=== PATIENT | male | born 1945 | race Caucasian/White ===

== ENCOUNTER 2017-04-13 00:31 | Inpatient (IN) ==
[2017-04-13 01:36] LABS: Basophils % 0.7 %; Eosinophils # 0.1 K/mcL (0.0-0.6); Hematocrit 45.8 % (37.5-50.1); Hemoglobin 15.5 g/dL (12.9-16.9); Immature Granulocytes % 0.2 % (0-4); Immature Platelets 3.7 % (1.1-6.1); Lymphocytes # 1.3 K/mcL (0.6-4.6); Lymphocytes % 23.1 %; Mean Corpuscular HGB Conc 33.8 g/dL (31.6-35.5); Mean Corpuscular Hemoglobin 29.9 pg (28.0-33.3); Mean Corpuscular Volume 88.4 fL (83.0-100.0); Mean Platelet Volume 10.1 fL (9.4-12.4); Monocytes # 0.8 K/mcL (0.0-1.3); Monocytes % 13.9 %; Neutrophils # 3.4 K/mcL (1.6-8.9); Platelet Count 179 K/mcL (140-400); Red Blood Count 5.18 M/mcL (4.19-5.50); Segmented Neutrophils % 60.1 %
[2017-04-13 01:40] LABS: INR 1.1; Prothrombin Time 11.9 Seconds (9.4-12.1)
[2017-04-13 01:43] LABS: Activated Partial Thrombo Time 31.5 Seconds (26.0-36.0)
[2017-04-13 01:47] LABS: BUN/Creatinine Ratio 13 (6-26); Blood Urea Nitrogen 17 mg/dL (8-26); Calcium 9.1 mg/dL (8.6-10.8); Carbon Dioxide 19 mEq/L (19-29); Chloride 108 mEq/L (98-109); Glucose 114 mg/dL (70-99); Osmolality,Calculated 288 (280-300); Potassium 3.7 mEq/L (3.5-4.5); Sodium 138 mEq/L (136-145); eGFR For African Americans > 60 (> 60); eGFR For Non-African Americans 54 (> 60)
[2017-04-13] MEDS ORDERED: Aspirin 325 MG TABLET PO ONE ×2 (02:00→02:33)
[2017-04-13] MEDS ORDERED: *HR* Heparin 5,000 UNIT/ML VIAL IVP PRN ×2 (02:08)
[2017-04-13] MEDS ORDERED: *HR* Heparin 5,000 UNIT/ML VIAL IVP ONE (02:08)
[2017-04-13] MEDS ORDERED: *HR* Metoprolol 5 MG/5 ML VIAL IVP ONE (02:32)
--- NOTE | 2017-04-13 02:32 | Emergency Department Note ---
Disposition Clinical Impression: NSTEMI (non-ST elevated myocardial infarction) Disposition: Admitted As Inpatient Condition: Good Referrals: Nick Patel DO [Primary Care Provider] - Forms: ED Satisfaction Letter, Work/School Release General Adult HPI - General Chief complaint: ED General Medical Stated complaint: HTN Time Seen by Provider: 04/13/17 01:25 Source: patient, family Limitations: no limitations Nursing Notes Reviewed: Yes Vital Signs Reviewed: Yes - History of Present Illness HPI Narrative: Patient presents for evaluation of high blood pressure and chest pain. Patient states that his blood pressure has been elevated the last several days. Patient was initially seen in urgent care and told to take it to his blood pressure medications. Patient has had continued symptoms despite this management. Patient's blood pressure remains greater than 170 systolic. Patient describes a left chest and arm pain is worse after he exercises. Atypical in nature and the fact that it is approximately an hour after exercise. Not tender to the touch or worse with movement. No chest pain during actual activity. Patient has not had associated diaphoresis or nausea or vomiting or radiation to right arm. Patient is concerned that he may have pulled a muscle using a new piece of exercise equipment. Pain Scale: 0 - Related Data Home Medications Medication Instructions Recorded Confirmed Aspirin [Lo-Dose Aspirin EC] 81 mg PO DAILY 04/13/17 04/13/17 Lisinopril [Zestril] 10 mg PO DAILY 04/13/17 04/13/17 Montelukast [Singulair] 10 mg PO DAILY 04/13/17 04/13/17 Potassium Chloride [K-Tab ER] 20 meq PO HS 04/13/17 04/13/17 Saw [place] Fruit [Saw [place]] 450 mg PO DAILY 04/13/17 04/13/17 Tamsulosin [Flomax] 0.4 mg PO DAILY 04/13/17 04/13/17 Verapamil HCl [Verapamil ER] 120 mg PO DAILY 04/13/17 04/13/17 Allergies Allergy/AdvReac Type Severity Reaction Status Date / Time No Known Allergies Allergy Verified 04/13/17 00:37 Review of Systems: CONSTITUTIONAL: No weight loss, fever, chills, weakness or fatigue. HEENT: Eyes: No visual changes. Ears, Nose, Throat: No hearing loss, difficulty talking or unable to swallow. SKIN: No rash or itching. CARDIOVASCULAR: chest pain RESPIRATORY: No shortness of breath, cough or sputum. GASTROINTESTINAL: No anorexia, nausea, vomiting or diarrhea. No abdominal pain or blood. GENITOURINARY: No burning on urination or hematuria. NEUROLOGICAL: No headache, dizziness, syncope, paralysis, ataxia, numbness or tingling in the extremities. No change in bowel or bladder control. MUSCULOSKELETAL: No muscle pain, back pain, joint pain or stiffness. Past Medical History - Past Medical History Medical history: Reports: hypertension Psychiatric history: Reports: no psych history - Social History Smoking Status: Never smoker Smokeless Tobacco Status: No Alcohol use: Reports: none Drug use: Reports: none Physical Exam General appearance: NAD, conversant Eyes: anicteric sclerae, moist conjunctivae; PERRL HENT: Atraumatic; oropharynx clear with moist mucous membranes and no mucosal ulcerations Neck: Normal inspection; Trachea midline; FROM, supple Lungs: CTA, with normal respiratory effort and no intercostal retractions CV: RRR, no MRGs Abdomen: Soft, non-tender; no rebound or gaurding Extremities: No peripheral edema or extremity lymphadenopathy Skin: Normal temperature; no rash, ulcers or lesions Psych: Appropriate mood and affect Neuro: alert and oriented to person, place and time - General Limitations: no limitations General appearance: alert, in no apparent distress Course - Reevaluation(s) Reevaluation #1: Patient with elevated troponin. Heart rate 99 to low 100s with frequent PVCs. Blood pressure remains elevated. Lopressor given. Heparin drip started. Aspirin given. - Consultations Consultation #1: Discussed with Dr. Viveros. Patient accepted for admission. Request cardiology consultation prior to patient coming to the floor. Discussed with Drs. Linda. Patient is fine to go to a telemetry bed with a heparin drip. If the patient develops chest pain and repeat EKG continue performed and they can further evaluate the need for possible emergent catheterization. Patient does not have pain or ST elevations and does not require emergent catheterization at this time. If the patient does develop chest pain, which he has not had in the emergency department, we can start a nitroglycerin drip. Vital Signs Temperature 98.2 F 04/13/17 00:37 Pulse Rate 95 04/13/17 00:37 Respiratory Rate 18 04/13/17 00:37 Blood Pressure 182/113 04/13/17 00:37 O2 Sat by Pulse Oximetry 95 04/13/17 00:37 Temperature 98.2 F 04/13/17 00:37 Pulse Rate 68 04/13/17 04:10 Respiratory Rate 17 04/13/17 04:10 Blood Pressure 159/97 04/13/17 04:10 O2 Sat by Pulse Oximetry 96 04/13/17 04:10 Oxygen Delivery Oxygen Delivery Room Air Medical Decision Making - Medical Records Medical records reviewed: Yes I reviewed the patient's medical records. - Lab Data Lab results reviewed: Yes I reviewed the patient's lab results. Result diagrams: 04/13/17 01:29 04/13/17 01:29 Lab Results 04/13/17 04/13/17 04/13/17 Range/Units 01: 01:29 01:29 WBC 5.6 (4.3-11.1) K/mcL RBC 5.18 (4.19-5.50) M/mcL Hgb 15.5 (12.9-16.9) g/dL Hct 45.8 (37.5-50.1) % MCV 88.4 (83.0-100.0) fL MCH 29.9 (28.0-33.3) pg MCHC 33.8 (31.6-35.5) g/dL RDW 13.0 (11.5-14.5) % Plt Count 179 (140-400) K/mcL MPV 10.1 (9.4-12.4) fL Immature Gran % 0.2 (0-4) % Seg Neutrophils % 60.1 % Lymphocytes % 23.1 % Monocytes % 13.9 % Eosinophils % 2.0 % Basophils % 0.7 % Neutrophils # 3.4 (1.6-8.9) K/mcL Lymphocytes # 1.3 (0.6-4.6) K/mcL Monocytes # 0.8 (0.0-1.3) K/mcL Eosinophils # 0.1 (0.0-0.6) K/mcL Basophils # 0.0 (0.0-0.2) K/mcL Immature Plt Fraction 3.7 (1.1-6.1) % PT 11.9 (9.4-12.1) Seconds INR 1.1 APTT 31.5 (26.0-36.0) Seconds Sodium 138 (136-145) mEq/L Potassium 3.7 (3.5-4.5) mEq/L Chloride 108 (98-109) mEq/L Carbon Dioxide 19 (19-29) mEq/L BUN 17 (8-26) mg/dL Creatinine 1.31 H (0.72-1.25) mg/dL Est GFR ( Amer) > 60 (> 60) Est GFR (Non-Af Amer) 54 L (> 60) BUN/Creatinine Ratio 13 (6-26) Glucose 114 H (70-99) mg/dL Calculated Osmolality 288 (280-300) Calcium 9.1 (8.6-10.8) mg/dL Troponin I (0-0.03) ng/mL 04/13/17 Range/Units 01:29 WBC (4.3-11.1) K/mcL RBC (4.19-5.50) M/mcL Hgb (12.9-16.9) g/dL Hct (37.5-50.1) % MCV (83.0-100.0) fL MCH (28.0-33.3) pg MCHC (31.6-35.5) g/dL RDW (11.5-14.5) % Plt Count (140-400) K/mcL MPV (9.4-12.4) fL Immature Gran % (0-4) % Seg Neutrophils % % Lymphocytes % % Monocytes % % Eosinophils % % Basophils % % Neutrophils # (1.6-8.9) K/mcL Lymphocytes # (0.6-4.6) K/mcL Monocytes # (0.0-1.3) K/mcL Eosinophils # (0.0-0.6) K/mcL Basophils # (0.0-0.2) K/mcL Immature Plt Fraction (1.1-6.1) % PT (9.4-12.1) Seconds INR APTT (26.0-36.0) Seconds Sodium (136-145) mEq/L Potassium (3.5-4.5) mEq/L Chloride (98-109) mEq/L Carbon Dioxide (19-29) mEq/L BUN (8-26) mg/dL Creatinine (0.72-1.25) mg/dL Est GFR ( Amer) (> 60) Est GFR (Non-Af Amer) (> 60) BUN/Creatinine Ratio (6-26) Glucose (70-99) mg/dL Calculated Osmolality (280-300) Calcium (8.6-10.8) mg/dL Troponin I 0.74 H* (0-0.03) ng/mL - Radiology Data Radiology results reviewed: Yes I reviewed the patient's radiology results. - EKG Data EKG #1 EKG attestation: Yes I reviewed and interpreted this EKG. EKG results narrative: Patient's EKG shows sinus rhythm with ventricular rate of 92 bpm. IN interval 178. QRS 106. QTC 382. Patient has no significant ST elevations or depressions. Patient does have significant T waves in V2 and V3. No specific elevation of aVR. [place] is considered however patient is not actively having chest pain. No previous EKG for comparison.
--- NOTE | 2017-04-13 02:33 | Emergency Department Note ---
START Narrative - START START: I examined this patient and my medical decision-making was reviewed with the Resident Physician. I agree with the documented findings, disposition and treatment plan as described except to the extent set forth below. 72 year old male presnt to the ED and states that he has had chest pain that startsabout 30-40 minites after exertion tht radiates into this left arm and is a dull pressure alhotuhg it has improved. He was seen at earlier today for high blood pressures and they were told he needs to come to the ED if his blood pressure elevated again. Upon arrival it was 180/130s and he has a troponin of 0.74. We will start heparin and metoprolol therapy. Lindsay will be admitted to medicine
[2017-04-13] MEDS: Heparin 25,000 UNIT/500 ML D5W 25,000 UNIT/500 ML MLS IVC SCH (02:44)
--- NOTE | 2017-04-13 05:41 | Internal Med History&Physical ---
Date of Encounter: 04/13/17 Time of Encounter: 05:39 Assessment and Plan (1) Hypertension Current visit: Yes Status: Acute Resume blood pressure medications. Blood pressure controlled now. If it starts rising or if patients has chest pain will start nitroglycerin drip. Qualifiers: Qualified Code(s): I10 - Essential (primary) hypertension (2) History of bleeding ulcers Current visit: Yes Status: Acute Last bleeding was in the 1980s. Denies any current bleed (3) NSTEMI (non-ST elevated myocardial infarction) Current visit: Yes Status: Acute Patient presented with 20 minute episode of left arm pain after he went home from exercising on a treadmill bike. checked pressure during this episode and it was 192/100. given the fact that he had noninclusive coronary artery disease year ago on an angiogram possibilities for this presentation include coronary spasm, hypertensive urgency vs a plaque rupture and thrombus formation : however he doesnt have ST elevation on EKG. would get workup done at [facility] a year ago. Patient is currently on aspirin, heparin drip. Appreciate cardiology recommendation Internal Medicine - H&P: HPI Chief complaint: chest pain History of present illness: Mr. Eastman is a 72 year old male with a history of hypertension, history of bleeding duodenal ulcers presents emergency room today with the main content of chest pain. Patient does bike treadmill 3 times a week. Today after he finished his bike treadmill and went home approximately 2 hours later he started experiencing left arm pain. This lasted for approximately 15 to 20 minutes. Once checked his blood pressure during this episode was 192/100. Patient rested down and pain resolved spontaneously. He presents emergency room for further management. He had a similar episode of pain 2 weeks earlier while he was doing your yard work. Patient was often during my interview. A year ago patient had extensive cardiac workup after he was told that he coded during a colonoscopy at [facility]. He had a coronary angiogram at that time and the mentioned that they were told there was no significant coronary disease. Past Med Surg Social Fam HX - Past Medical History Medical history: hypertension Psychiatric history: no psych history - Social History Smoking Status: Never smoker Smokeless Tobacco Status: No Alcohol use: none Drug use: none Internal Medicine - H&P: Meds Aspirin [Lo-Dose Aspirin EC] 81 mg PO DAILY 04/13/17 [History] Lisinopril [Zestril] 10 mg PO DAILY 04/13/17 [History] Montelukast [Singulair] 10 mg PO DAILY 04/13/17 [History] Potassium Chloride [K-Tab ER] 20 meq PO HS 04/13/17 [History] Saw [place] Fruit [Saw [place]] 450 mg PO DAILY 04/13/17 [History] Tamsulosin [Flomax] 0.4 mg PO DAILY 04/13/17 [History] Verapamil HCl [Verapamil ER] 120 mg PO DAILY 04/13/17 [History] 3 Allergy/AdvReac Type Severity Reaction Status Date / Time No Known Allergies Allergy Verified 04/13/17 00:37 All Systems PM: A 10-system review of systems was performed and is negative for pertinent findings except as documented above in the HPI. Review of systems: 10 point review of systems is negative except for HPI - Constitutional Vitals: Temp Pulse Resp BP Pulse Ox 98.2 F 68 17 159/97 98 04/13/17 00:37 04/13/17 04:10 04/13/17 04:10 04/13/17 04:10 04/13/17 05:00 Exam: General: Patient is A&O X3 Cardiac: normal S1, S2, no additional sounds or murmurs Chest: Clear to auscultation bilaterally Abdomen: soft, nontender, non distended, normal BS. Neuro: No focal deficits Internal Med - H&P Results - Labs CBC & Chem 7: 04/13/17 01:29 04/13/17 01:29
--- NOTE | 2017-04-13 07:47 | Event Note ---
<JoelVega cruz - Last Filed: 04/13/17 08:58> Date of Encounter: 04/13/17 Time of Encounter: 07:33 SUBJECTIVE: Patient seen and examined. Patient denies left shoulder discomfort, CP, or SOB at this time. Serial troponin decreased from 0.74 to 0.53. Family is at bedside and all questions were answered. OBJECTIVE: GENERAL: WN/WD male in NAD HEENT: MMM, oropharynx clear NECK: supple, no JVD or carotid bruits CV: RRR, no M/R/G RESP: CTAB GI: soft, NT, positive BS MSK: full ROM, no chest wall tenderness, good strength all extremities NEURO: no focal deficits PSYCH: normal mood, normal affect Last Vital Signs Temp 98.1 F 04/13/17 06:28 Pulse 67 04/13/17 06:28 Resp 15 04/13/17 06:28 BP 132/83 04/13/17 06:28 Pulse Ox 94 04/13/17 06:28 Abnormal Labs, Last 24 hours 04/13/17 04/13/17 01:29 01:29 Creatinine 1.31 H Est GFR (Non-Af Amer) 54 L Glucose 114 H Troponin I 0.74 H* ASSESSMENT: 1) NSTEMI (non-ST elevated myocardial infarction) 2) Elevated Troponin 3) CKD Stage 3 4) Hypertension 5) DVT prophylaxis PLAN: 1) Continue Heparin ggt. Awaiting further cardiology recommendations 2) Serial troponin decreased from 0.74 to 0.53, Possibly related to ACS vs CKD. Continue to trend serial troponins. 3) Creatinine at baseline. Continue to monitor 4) Blood pressure controlled now. If it starts rising or if patients has chest pain will start nitroglycerin drip. 5) Continue Heparin ggt. <Jd Mathews H - Last Filed: 04/13/17 10:41> Date of Encounter: 04/13/17 start metoprolol low dose, Lipitor, lipid panel Cardiology recommendations appreciated sys he had a normal cardiac cath in August last year after being diagnosed with VT ( currently taking Verapamil) I examined this patient and my medical decision-making was reviewed with the Resident Physician. I agree with the documented findings, disposition and treatment plan as described except to the extent set forth below.
[2017-04-13] MEDS: Verapamil ER (24 HR) 120 MG TABLET.ER PO SCH (08:08)
[2017-04-13] MEDS: Famotidine 20 MG TABLET PO SCH (08:08)
[2017-04-13] MEDS: Aspirin 81 MG TAB.CHEW PO SCH (08:08)
[2017-04-13 10:56] LABS: Magnesium 2.2 mg/dL (1.6-2.6)
--- NOTE | 2017-04-13 12:09 | Cardiology Consult Note ---
<DieudonneJonatan Denny - Last Filed: 04/13/17 13:17> Date of Encounter: 04/13/17 Time of Encounter: 11:30 Assessment and Plan (1) Hypertensive urgency Current Visit: Yes Status: Acute Per Cardiology: Presented with hypertensive urgency with systolic pressure in the 190s. Systolic pressure currently better controlled to 130s, chest pain and left arm symptoms resolved with blood pressure control. On CCB and ACEI at home. Now on BB. (2) Elevated troponin I measurement Current Visit: Yes Status: Acute Per Cardiology: Trops 0.74 and 0.53. Previous records reviewed from [facility] 10/2015-- "recent hospitalization with asymptomatic V. tach discovered when he presented for colonoscopy". "Extensive evaluation including structural normal heart by echo and no significant disease at cath with normal cardiac MRI, felt to be left septal morphology/benign". Chest pain now resolved with blood pressure control. Do not suspect non-STEMI, suspect demand ischemia in the setting of hypertensive urgency. No arrhythmias noted on telemetry. Patient very active with no symptoms with exertional activities. I had a lengthy discussion with patient and family and at this point agreeable to check echo. Further recommendations pending echo. We'll monitor for 3rd troponin. Continue heparin drip for now. No further ischemic evaluation in terms of catheterization at this time unless develops any symptoms , significant elevation in troponin, or significant findings on echo. Patient and family verbalized understanding and agreed with plan. Discussed with Dr. Linda, whom agrees with plan. On statin and ASA as well. (3) History of bleeding ulcers Current Visit: Yes Status: Acute Per Cardiology: On asa at home. On IV Hepo gtt-- stable. Discussion w patient/family: The assessment and plan as outlined above was discussed with the patient and/or family members who expressed understanding and agreement. All questions were answered. Thank you for involving us in the care of your patient. Please call with any questions. History of Present Illness Consult date: 04/13/17 Requesting physician: Jonnathan Viveros Consult reason: CP, Elevated Trop Chief complaint: High Blood Pressure History of present illness: Mr. Eastman is a 72 year old male with a relevant past medical history of hypertension, hyperlipidemia, CK D stage IIIa. Medical records reviewed and patient presented October 2015 for colonoscopy and found to be in asymptomatic ventricular tachycardia and underwent extensive cardiac workup at [facility]. Cardiology consult for elevated troponins in setting of hypertension and with concerns of left arm and left-sided chest pain. Patient reports up until yesterday his normal state of health. 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 He reports he was exercising on treadmill and walked about 6 miles with no symptoms and lifted weights. He reports about 2 hours later at home had left chest pressure and left arm soreness. He reports checked his blood pressure was noted to be in the 190s over 110s. He reports he presented to Urgent care with apparent ECG showing no significant symptoms and told to take an initial dose of his blood pressure medication at home. He reports some blood pressures remained elevated despite extra medication and came to the ER. He reports PCP saw him recently. Blood pressure in the 150s. He reports compliance with medications. He reports symptoms now resolved with better blood pressure control. He reports he exercises regularly 3-4 times a week following the above- noted routine. He denies any increase in fatigue, dyspnea on exertion, or any chest pain symptoms prior to this event. Past Med Surg Social Fam HX - Past Medical History Attestation: Yes The following information was validated with the patient. Source: patient, old records reviewed, obtained from family Medical history: hyperlipidemia, hypertension Psychiatric history: no psych history - Social History Smoking Status: Never smoker Smokeless Tobacco Status: No Alcohol use: none Drug use: none Medications and Allergies Aspirin [Lo-Dose Aspirin EC] 81 mg PO DAILY 04/13/17 [History] Lisinopril [Zestril] 10 mg PO DAILY 04/13/17 [History] Montelukast [Singulair] 10 mg PO DAILY 04/13/17 [History] Potassium Chloride [K-Tab ER] 20 meq PO HS 04/13/17 [History] Saw [place] Fruit [Saw [place]] 450 mg PO DAILY 04/13/17 [History] Tamsulosin [Flomax] 0.4 mg PO DAILY 04/13/17 [History] Verapamil HCl [Verapamil ER] 120 mg PO DAILY 04/13/17 [History] 3 Allergy/AdvReac Type Severity Reaction Status Date / Time No Known Allergies Allergy Verified 04/13/17 00:37 All Systems Review: A 10-system review of systems was performed and is negative for pertinent findings except as documented above in the HPI. - Cardiovascular Cardiovascular: as per HPI, chest pain with exertion, radiating jaw, neck or arm pain Physical Examination Vital Signs, Last 4 Hours Temp Pulse Resp BP Pulse Ox 04/13/17 11:43 97.8 F 52 15 142/92 94 General: Conversant, No Apparent Distress HEENT: Atraumatic, Normocephaly, Mucus Membranes Moist Neck: No JVD, Normal carotid pulses Cardiac: Reg Rate and Rhythm, Normal S1 and S2, No Murmur Lungs: Normal Breath Sounds, No Wheeze, Rales, Rhonchi Neuro: Alert and responsive, No focal deficits noted Abdomen: Soft, Non-Tender Skin: No rashes noted on visualized skin Musculoskeletal: No Chest Wall Tenderness Extremities: No Clubbing, No Cyanosis, No Edema, Normal Pulses Results 04/13/17 01:29 04/13/17 01:29 Lab Results Laboratory Tests 03/24/17 04/13/17 04/13/17 10:46 01:29 01:29 Creatinine 1.36 H 1.31 H Est GFR (Non-Af Amer) 52 L 54 L Troponin I 0.74 H* 04/13/17 07:45 Creatinine Est GFR (Non-Af Amer) Troponin I 0.53 H* ITS Impressions Chest X-Ray 04/13/17 00:50 IMPRESSION: No acute cardiopulmonary abnormality. D/ / Kendall Thapa MD / Kendall Thapa MD Interpreting Provider: Kendall Thapa MD Active Medications Aspirin (Aspirin) 81 mg PO DAILY [facility] Stop: 10/13/17 09:01 Last Admin: 04/13/17 08:08 Dose: 81 mg Atorvastatin Calcium (Lipitor) 80 mg PO HS [facility] Stop: 10/13/17 21:01 Famotidine (Pepcid) 20 mg PO DAILY SABRINA PRN Reason: Protocol Stop: 10/13/17 09:01 Last Admin: 04/13/17 08:08 Dose: 20 mg Heparin Sodium (Porcine) (Heparin) 4,000 unit IVP Q6HR PRN PRN Reason: SEE COMMENTS Stop: 10/13/17 02:09 Heparin Sodium (Porcine) (Heparin) 2,000 unit IVP Q6H PRN PRN Reason: SEE COMMENTS Stop: 10/13/17 02:09 Heparin Sodium/Dextrose (Heparin 25,000 Unit/500 Ml D5w) 25,000 unit in 500 mls @ 23.95 mls/hr IVC .[id number] SABRINA; 12 UNIT/KG/HR PRN Reason: Protocol Stop: 10/13/17 02:16 Last Admin: 04/13/17 02:44 Dose: 12 unit/kg/hr, 23.95 mls/hr Lisinopril (Zestril) 10 mg PO DAILY [facility] PRN Reason: Protocol Stop: 10/13/17 09:01 Last Admin: 04/13/17 08:08 Dose: 10 mg Metoprolol Tartrate (Lopressor) 12.5 mg PO BID [facility] Stop: 10/13/17 10:40 Last Admin: 04/13/17 12:07 Dose: 12.5 mg Montelukast Sodium (Singulair) 10 mg PO DAILY [facility] Stop: 10/13/17 09:01 Last Admin: 04/13/17 08:08 Dose: 10 mg Tamsulosin HCl (Flomax) 0.4 mg PO DAILY [facility] PRN Reason: Protocol Stop: 10/13/17 09:01 Last Admin: 04/13/17 08:08 Dose: 0.4 mg Verapamil HCl ([place] Sr) 120 mg PO DAILY [facility] Stop: 10/13/17 09:01 Last Admin: 04/13/17 08:08 Dose: 120 mg - Imaging and Cardiology Echo: pending Cardiac cath: report reviewed - EKG Interpretation EKG results cardiology: personally reviewed, normal ECG, sinus rhythm, no diagnostic ischemia (Tele shows avg HR 76, occasional PVCs, no VT noted.) Consult Discharge Plan - Plan Referrals: Nick Patel DO [Primary Care Provider] - 04/16/17 10:00 am <Nereida Linda - Last Filed: 04/13/17 14:31> Date of Encounter: 04/13/17 - Attending Attestation I have personally performed a face to face evaluation on this patient. I have reviewed and agree with the care plan with [facility]. Mr. Eastman presented with high blood pressure and chest discomfort. Medical history significant for the discovery of NSVT during a Colonoscopy in 2015 prompting termination of the procedure and transfer to [place] where he underwent a LHC demonstrating no significant disease by cath and normal cardiac MRI. 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 He does not take BP regularly but had an episode of not feeling well last week and then again yesterday. Upon admission, troponin noted to be elevated possibly related to demand ischemia from hypertension. At this time, we do not suspect ACS. Recommend obtaining an echo for review of structure and function prior to making further decisions. Patient is agreeable. Continue heparin gtt for now. Assessment and Plan Discussion w patient/family: The assessment and plan as outlined above was discussed with the patient and/or family members who expressed understanding and agreement. All questions were answered. Thank you for involving us in the care of your patient. Please call with any questions. History of Present Illness History of present illness: Mr. Eastman is a 72 year old male All Systems Review: A 10-system review of systems was performed and is negative for pertinent findings except as documented above in the HPI. Physical Examination Vital Signs, Last 4 Hours Temp Pulse Resp BP Pulse Ox 04/13/17 11:43 97.8 F 52 15 142/92 94 Results 04/13/17 01:29 04/13/17 01:29 Lab Results 04/13/17 04/13/17 04/13/17 07:45 07:45 08:50 APTT 64.9 H D Magnesium 2.2 Troponin I 0.53 H* 04/13/17 12:53 APTT Magnesium Troponin I 0.51 H*
--- NOTE | 2017-04-13 15:26 | Event Note ---
Date of Encounter: 04/13/17 Time of Encounter: 15:30 - Cardiology Event Note 3rd Trop down to 0.51. Echo pending. CP free. Continue hep. gtt for now until echo resulted.
[2017-04-14] MEDS: Heparin 25,000 UNIT/500 ML D5W 25,000 UNIT/500 ML MLS IVC SCH (00:59)
[2017-04-14 04:43] LABS: Hematocrit 42.9 % (37.5-50.1); Mean Corpuscular HGB Conc 32.6 g/dL (31.6-35.5); Mean Corpuscular Hemoglobin 29.3 pg (28.0-33.3); Mean Corpuscular Volume 89.7 fL (83.0-100.0); Mean Platelet Volume 10.7 fL (9.4-12.4); Platelet Count 164 K/mcL (140-400); Red Blood Count 4.78 M/mcL (4.19-5.50); Red Cell Distribution Width 13.4 % (11.5-14.5)
[2017-04-14 05:01] LABS: BUN/Creatinine Ratio 17 (6-26); Blood Urea Nitrogen 22 mg/dL (8-26); Calcium 8.5 mg/dL (8.6-10.8); Carbon Dioxide 21 mEq/L (19-29); Chloride 110 mEq/L (98-109); Chol/HDL Ratio 3.4 (0-4.9); Cholesterol 153 mg/dL (< 200); Glucose 95 mg/dL (70-99); HDL Cholesterol 45 mg/dL (40-59); LDL Cholesterol,Calculated 94 mg/dL (0-99); Osmolality,Calculated 289 (280-300); Potassium 3.9 mEq/L (3.5-4.5); Sodium 138 mEq/L (136-145); Triglycerides 71 mg/dL (< 150); eGFR For African Americans > 60 (> 60); eGFR For Non-African Americans 55 (> 60)
--- NOTE | 2017-04-14 05:45 | Electrocardiograph Report ---
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
--- NOTE | 2017-04-14 07:48 | Cardiology Progress Note ---
Date of Encounter: 04/14/17 Time of Encounter: 07:45 Assessment and Plan (1) Hypertensive urgency Current Visit: Yes Status: Acute Per Cardiology: Presented with hypertensive urgency with systolic pressure in the 190s. Systolic pressure currently better controlled to 110s - 140's, chest pain and left arm symptoms resolved with blood pressure control. On CCB and ACEI at home. Now on BB. Patient encouraged to keep heart rate and blood pressure log and bring to follow-up appointment. (2) Elevated troponin I measurement Current Visit: Yes Status: Acute Per Cardiology: Trops 0.74, 0.53, and 0.51. Previous records reviewed from [place] 10/2015-- "recent hospitalization with asymptomatic V. tach discovered when he presented for colonoscopy". "Extensive evaluation including structural normal heart by echo and no significant disease at cath with normal cardiac MRI, felt to be left septal morphology/benign". Chest pain now resolved with blood pressure control. Do not suspect non-STEMI, suspect demand ischemia in the setting of hypertensive urgency. Patient very active with no symptoms with exertional activities. Echo pending. On asa, BB. Patient declined statin for now-- does not have HLD and wants to wait to see if he needs. (3) History of bleeding ulcers Current Visit: Yes Status: Acute Per Cardiology: On asa at home. On IV Hep. gtt-- stable. (4) Ventricular arrhythmia Current Visit: Yes Status: Chronic Per Cardiology: 1 11 beat run of NSVT noted, 1 brief episode of atrial tach-- on CCB and now on BB. Had recent w/u for VT (asymptomatic). Discussion w patient/family: The assessment and plan as outlined above was discussed with the patient and/or family members who expressed understanding and agreement. All questions were answered. Thank you for involving us in the care of your patient. Please call with any questions. Subjective Principal diagnosis: CP, HTN Interval history: Patient denies any concerns over night. Denies any recurrence of left-sided chest pain or left arm pain. He denies any short of breath or palpitations. Denies any active bleeding or blood loss. Objective Vital Signs, Last 4 Hours Temp Pulse Resp BP Pulse Ox 04/14/17 06:54 97.6 F 62 16 148/64 98 04/14/17 04:08 98.8 F 56 19 119/62 96 General: Conversant, No Apparent Distress HEENT: Atraumatic, Normocephaly, Mucus Membranes Moist Neck: No JVD, Normal carotid pulses Cardiac: Reg Rate and Rhythm, Normal S1 and S2, No Murmur Lungs: Normal Breath Sounds, No Wheeze, Rales, Rhonchi Neuro: Alert and responsive, No focal deficits noted Abdomen: Soft, Non-Tender Skin: No rashes noted on visualized skin Musculoskeletal: No Chest Wall Tenderness Extremities: No Clubbing, No Cyanosis, No Edema, Normal Pulses Results 04/14/17 03:46 04/14/17 03:46 Lab Results Laboratory Tests 04/13/17 04/13/17 04/13/17 01:29 01:29 07:45 INR 1.1 Creatinine Est GFR (Non-Af Amer) Troponin I 0.74 H* 0.53 H* LDL Cholesterol, Calc 04/13/17 04/14/17 12:53 03:46 INR Creatinine 1.29 H Est GFR (Non-Af Amer) 55 L Troponin I 0.51 H* LDL Cholesterol, Calc 94 Active Medications Aspirin (Aspirin) 81 mg PO DAILY [facility] Stop: 10/13/17 09:01 Last Admin: 04/13/17 08:08 Dose: 81 mg Famotidine (Pepcid) 20 mg PO DAILY [facility] PRN Reason: Protocol Stop: 10/13/17 09:01 Last Admin: 04/13/17 08:08 Dose: 20 mg Heparin Sodium (Porcine) (Heparin) 4,000 unit IVP Q6HR PRN PRN Reason: SEE COMMENTS Stop: 10/13/17 02:09 Heparin Sodium (Porcine) (Heparin) 2,000 unit IVP Q6H PRN PRN Reason: SEE COMMENTS Stop: 10/13/17 02:09 Heparin Sodium/Dextrose (Heparin 25,000 Unit/500 Ml D5w) 25,000 unit in 500 mls @ 23.95 mls/hr IVC .[id number] SABRINA; 12 UNIT/KG/HR PRN Reason: Protocol Stop: 10/13/17 02:16 Last Admin: 04/14/17 00:59 Dose: 12 unit/kg/hr, 23.95 mls/hr Lisinopril (Zestril) 10 mg PO DAILY [facility] PRN Reason: Protocol Stop: 10/13/17 09:01 Last Admin: 04/13/17 08:08 Dose: 10 mg Metoprolol Tartrate (Lopressor) 12.5 mg PO BID [facility] Stop: 10/13/17 10:40 Last Admin: 04/13/17 21:29 Dose: 12.5 mg Montelukast Sodium (Singulair) 10 mg PO DAILY [facility] Stop: 10/13/17 09:01 Last Admin: 04/13/17 08:08 Dose: 10 mg Tamsulosin HCl (Flomax) 0.4 mg PO DAILY [facility] PRN Reason: Protocol Stop: 10/13/17 09:01 Last Admin: 04/13/17 08:08 Dose: 0.4 mg Verapamil HCl (Calan Sr) 120 mg PO DAILY [facility] Stop: 10/13/17 09:01 Last Admin: 04/13/17 08:08 Dose: 120 mg - Imaging and Cardiology Echo: pending - EKG Interpretation EKG results cardiology: other (24 hr tele shows SR avg 58, 1 11 beat run NSVT, brief atrial tach) - VTE Documentation of Mechanical Device: Graduated compression elastic hosiery Consult Discharge Plan - Plan Referrals: Nick Patel DO [Primary Care Provider] - 04/16/17 10:00 am
[2017-04-14] MEDS: Verapamil ER (24 HR) 120 MG TABLET.ER PO SCH (08:47)
[2017-04-14] MEDS: Famotidine 20 MG TABLET PO SCH (08:47)
[2017-04-14] MEDS: Aspirin 81 MG TAB.CHEW PO SCH (08:47)
--- NOTE | 2017-04-14 08:54 | Discharge Summary ---
<Vega Veras - Last Filed: 04/14/17 10:50> Date of Encounter: 04/14/17 Time of Encounter: 08:52 - Discharge Diagnosis (1) Hypertensive urgency Priority: Primary Status: Acute Comments: Presented with hypertensive urgency with systolic pressure in the 190s. Systolic pressure currently better controlled to 110s - 140's, chest pain and left arm symptoms resolved with blood pressure control. On CCB and ACEI at home. Now on BB. Patient encouraged to keep heart rate and blood pressure log and bring to follow-up appointment. (2) Elevated troponin I measurement Priority: Primary Status: Acute Comments: Trops 0.74, 0.53, and 0.51. Previous records reviewed from [place] 10/2015-- "recent hospitalization with asymptomatic V. tach discovered when he presented for colonoscopy". "Extensive evaluation including structural normal heart by echo and no significant disease at cath with normal cardiac MRI, felt to be left septal morphology/benign". Chest pain now resolved with blood pressure control. Do not suspect non-STEMI, suspect demand ischemia in the setting of hypertensive urgency. Patient very active with no symptoms with exertional activities. Echo pending. On asa, BB. Patient declined statin for now-- does not have HLD and wants to wait to see if he needs. Patient and agreeable to no further ischemic eval. D/C IV Hep gtt. Will apply 2 week ECAT Event monitor and f/u as outpatient-- scheduled. (3) Ventricular arrhythmia Priority: Secondary Status: Chronic Comments: Single episode of 11 beat run of NSVT noted, 1 brief episode of atrial tach-- on CCB and now on BB. Had recent w/u for VT (asymptomatic). (4) BPH (benign prostatic hyperplasia) Priority: Secondary Status: Chronic Comments: Continue Flomax Qualifiers: Lower urinary tract symptom presence: symptoms absent Qualified Code(s): N40.0 - Benign prostatic hyperplasia without lower urinary tract symptoms (5) History of bleeding ulcers Priority: Secondary Status: Chronic Comments: On asa at home. Start Omeprazole (6) DVT prophylaxis Priority: Primary Status: Acute - Discharge Medications Prescriptions: Metoprolol [Lopressor] 12.5 mg PO BID #30 tablet Omeprazole [PriLOSEC] 20 mg PO DAILY #30 cap Home Medications: Aspirin [Lo-Dose Aspirin EC] 81 mg PO DAILY 04/13/17 [History] Lisinopril [Zestril] 10 mg PO DAILY 04/13/17 [History] Montelukast [Singulair] 10 mg PO DAILY 04/13/17 [History] Potassium Chloride [K-Tab ER] 20 meq PO HS 04/13/17 [History] Saw Pledger Fruit [Saw Pledger] 450 mg PO DAILY 04/13/17 [History] Tamsulosin [Flomax] 0.4 mg PO DAILY 04/13/17 [History] Verapamil HCl [Verapamil ER] 120 mg PO DAILY 04/13/17 [History] Metoprolol [Lopressor] 12.5 mg PO BID #30 tablet 04/14/17 [Rx] Omeprazole [PriLOSEC] 20 mg PO DAILY #30 cap 04/14/17 [Rx] Allergies/Adverse Reactions: 3 Allergy/AdvReac Type Severity Reaction Status Date / Time No Known Allergies Allergy Verified 04/13/17 00:37 Procedures/tests Complete & Pending: Procedures Performed prior 72 hours Category Date Time Status EV echocardiogram Routine Y 04/13/17 12:08 Completed Date of admission: 04/13/17 05:31 Primary care physician: Shen Zazueta Consults: Cardiology Discharging clinician: Vega Veras Anticipated date of discharge: 04/14/17 - Patient Status Disposition: Home, Self-Care Condition: Good Functional capacity at discharge: independent ambulation Overall status at discharge: patient is back to baseline - Discharge Instructions Instructions: Metoprolol (By mouth), Omeprazole (By mouth), Chronic Hypertension (DC) Follow Up With: Jonatan Bro, LEAN MANUFACTURING COORDINATOR [Advanced Practice Nurse] - (office will call patient at home with appointment date and time) Nick Patel DO [Primary Care Provider] - 04/16/17 10:00 am Additional Instructions: Wear 2 week Event monitor and follow up as outpatient with cardiology as scheduled Start Metoprolol Patient encouraged to keep heart rate and blood pressure log and bring to follow -up appointment. - Diet and Activity Activity: increase activity as tolerated, resume usual activities as tolerated Diet: low salt diet Hospital course: Mr. Eastman is a 72 year old male with a PMH of HTN, BPH, and remote gastric ulcers that presented with high blood pressure and left shoulder discomfort. Medical history significant for the discovery of NSVT during a Colonoscopy in 2015 prompting termination of the procedure and transfer to [place] where he underwent a C demonstrating no significant disease by cath and normal cardiac MRI. 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 He does not take BP regularly but had an episode of not feeling well last week and then again prior to arrival. Upon admission, troponin noted to be elevated possibly related to demand ischemia from hypertension. Heparin drip was started. Cardiology was consulted and did not suspect ACS. Echo revealed no structural or functional abnormality. Patient had single episode of 11 beat run of NSVT noted on telemetry and one brief episode of atrial tach-- on CCB and started on BB. Had recent w/u for VT (asymptomatic). Patient and agreeable to no further ischemic eval. Cardiology advised 2 week ECAT Event monitor. Outpatient cardiology f/u was scheduled. - Time Spent with Patient Total time spent providing and/or coordinating discharge services: - Constitutional Vitals: Temp Pulse Resp BP Pulse Ox 97.6 F 62 16 148/64 98 04/14/17 06:54 04/14/17 06:54 04/14/17 06:54 04/14/17 06:54 04/14/17 06:54 General appearance: Present: cooperative, A&O X 3, pleasant, no acute distress, answers questions appropriately - Head Head exam: Present: atraumatic, normocephalic - Eye Eye exam: Present: PERRL, conjuntiva pink, sclera anicteric Pupils: Present: PERRL - Neck Neck exam general surgery: Present: supple, trachea midline. Absent: lymphadenopathy - Respiratory Respiratory exam: Present: CTAB. Absent: accessory muscle use, rales, rhonchi, wheezes - Cardiovascular Cardiovascular exam: Present: RRR, +S1, +S2. Absent: diastolic murmur, gallop, rubs, systolic murmur - GI/Abdominal GI/Abdominal exam: Present: normal bowel sounds, soft, no peritoneal signs. Absent: distended, tenderness - Extremities Exam Extremities exam: Present: warm, radial pulses palpable and symmetrical. Absent : calf tenderness, cyanotic, pedal edema - Back Exam Back exam: Present: normal inspection. Absent: paraspinal tenderness, tenderness - Neurological Exam Neurological exam: Present: CN II-XII intact, oriented X3, no focal deficits. Absent: pronater drift, facial droop, speech deficit - Psychiatric Psychiatric exam: Present: normal affect, normal mood - Skin Skin exam: Present: dry, intact, warm - VTE Documentation of Mechanical Device: Graduated compression elastic hosiery <EdJd Williamson H - Last Filed: 04/14/17 14:49> Date of Encounter: 04/14/17 Procedures/tests Complete & Pending: Procedures Performed prior 72 hours Category Date Time Status ECG event monitor 2 weeks [ECG] Routine Y 04/14/17 10:23 Completed EV echocardiogram Routine Y 04/13/17 12:08 Completed Date of admission: 04/13/17 05:31 Primary care physician: Shen Zazueta Hospital course: Mr. Eastman is a 72 year old male - Time Spent with Patient Total time spent providing and/or coordinating discharge services: - Constitutional Vitals: Temp Pulse Resp BP Pulse Ox 97.6 F 46 16 111/74 96 04/14/17 10:59 04/14/17 10:59 04/14/17 10:59 04/14/17 10:59 04/14/17 10:59 - Attending Attestation Elevated troponins likely secondary to demand ischemia Follow-up with cardiology as an outpatient Echocardiogram 04/13/17 12:08 Impressions: LVEF 60%. Normal LV chamber size, wall thickness and function. Moderate left ventricular diastolic dysfunction. Normal right ventricular structure and function. Mildly calcified aortic valve leaflets. Mild aortic regurgitation. No evidence of pulmonary hypertension. Left Ventricular Wall Motion: Rest Echo Findings All wall segments showed normal motion. I examined this patient and my medical decision-making was reviewed with the Resident Physician. I agree with the documented findings, disposition and treatment plan as described except to the extent set forth below.
--- NOTE | 2017-04-14 10:26 | Event Note ---
Date of Encounter: 04/14/17 Time of Encounter: 10:25 - Cardiology Event Note Impressions Echocardiogram 04/13/17 12:08 Impressions: LVEF 60%. Normal LV chamber size, wall thickness and function. Moderate left ventricular diastolic dysfunction. Normal right ventricular structure and function. Mildly calcified aortic valve leaflets. Mild aortic regurgitation. No evidence of pulmonary hypertension. Left Ventricular Wall Motion: Rest Echo Findings All wall segments showed normal motion. Findings: Study Quality * Technically adequate exam. ECG Findings * Normal sinus rhythm. Left Ventricle * LVEF 60%. * Normal LV chamber size, wall thickness and function. * Moderate left ventricular diastolic dysfunction. Right Ventricle * Normal right ventricular structure and function. Left Atrium * Moderately dilated left atrium. Right Atrium * Mildly dilated right atrium. Interatrial Septum * Interatrial septum not well evaluated. Aortic Valve * Mildly calcified aortic valve leaflets. * Mild aortic regurgitation. * No aortic stenosis. Mitral Valve * Normal mitral valve structure and function. * No mitral regurgitation. * No mitral stenosis. Tricuspid Valve * Normal tricuspid valve structure and function. * Trace tricuspid regurgitation. * No evidence of pulmonary hypertension. Pulmonic Valve * Normal pulmonic valve structure and function. * No pulmonic regurgitation. Aorta * Normally sized aortic root. Pericardium * The pericardium appears normal. IVC * Normal IVC dimensions and inspiratory collapse. Pulmonary Artery * Normal visualized portions of the main pulmonary artery. Patient and agreeable to no further ischemic eval. Will DC IV Hep gtt. Will apply 2 week ECAT Event monitor and f/u as outpatient-- scheduled. Will s/o , re-consult PRN, discussed with Dr. Linda and primary service. DC pending. All questions answered.
[2017-04-14 11:01] VITALS: BP 111/74
[2017-04-15 16:52] LABS: CK-BB (CK isoenzymes) 0 % (0-0); CK-MB (CK isoenzymes) 0 % (0-4); CK-MM (CK-isoenzymes) 100 % (96-100)
[2017-04-15 16:52] LABS: CK-BB (CK isoenzymes) 0 % (0-0); CK-MB (CK isoenzymes) 0 % (0-4); CK-MM (CK-isoenzymes) 100 % (96-100)
[2017-04-16 07:22] LABS: CK Total (Ck Isoenzymes) 111 U/L (20-200)
[2017-04-16 07:22] LABS: CK Total (Ck Isoenzymes) 98 U/L (20-200)
== END 2017-04-14 14:29 | disposition home or self-care (01) | DRG 305 ==
LOC: 2NENU 00:31 → EMEROO 00:31 → 2NENU 03:46 → SUATTDRO 05:31
PROVIDERS: ADMIT Hospitalist; ATTEND Internal Medicine

== ENCOUNTER 2018-11-22 22:25 | Observation (INO) ==
[2018-11-22] MEDS ORDERED: 0.9 % Sodium Chloride 1,000 ML IVC ONE (22:44)
--- NOTE | 2018-11-22 22:54 | Emergency Department Note ---
Disposition Clinical Impression: KELLEY (acute kidney injury) UTI (urinary tract infection) Qualifiers: Urinary tract infection type: acute cystitis Hematuria presence: with hematuria Qualified Code(s): N30.01 - Acute cystitis with hematuria Sepsis Qualifiers: Sepsis type: sepsis due to unspecified organism Qualified Code(s): A41.9 - Sepsis, unspecified organism Fall Qualifiers: Encounter type: initial encounter Qualified Code(s): W19.XXXA - Unspecified fall, initial encounter Disposition: Admitted As Inpatient Condition: Fair Time of Disposition: 00:59 General Adult HPI - General Chief complaint: ED Altered Mental Status Stated complaint: AMS Time Seen by Provider: 11/22/18 22:29 Source: patient, EMS Mode of arrival: ambulatory Limitations: no limitations Nursing Notes Reviewed: Yes Vital Signs Reviewed: Yes - History of Present Illness HPI Narrative: Patient is a 73-year-old male with a past medical history of atrial f ibrillation, high blood pressure, bladder surgery, requires self catheterization daily, and chronic right leg drop presents to the ED for altered mental status and fall. Patient arrived by EMS and is currently at bedside. She states that over the past 3 days the patient has been having increasing confusion at around 7:00 PM at night in which she makes abnormal claims of being at a bank or he begins preaching the people. She states that he also is independently mobile with a walker however recently has been having increased difficulty with ambulating around the house for the past 3 nights as well. She denies any recent sick contacts or infectious symptoms but states that he has presented like this in the past and it was a urinary tract infection. Per squad the patient had a fever and route of 100.4 is tachycardic with an irregular rhythm around 105. Patient's states that he also had a fall earlier today around noon in which she was in another room and she heard him fall onto the ground when she walked into the living room he was laying between the chair and the wall on his back she does not believe that he hit his head and he did not lose consciousness at that time. Patient himself denies any pain, numbness, or tingling in or weakness at this time states he mainly feels like he has to self catheter due to pressure. Pain Scale: 0 - Related Data Home Medications Medication Instructions Recorded Confirmed Lisinopril [Zestril] 20 mg PO QPM 04/13/17 11/22/18 Montelukast [Singulair] 10 mg PO DAILY 04/13/17 11/22/18 Potassium Chloride [K-Tab ER] 20 meq PO HS 04/13/17 11/22/18 Tamsulosin [Flomax] 0.4 mg PO DAILY 04/13/17 11/22/18 Apixaban [Eliquis] 5 mg PO BID 08/31/17 11/22/18 Azelastine 0.1% Nasal [place] 1 spr NS BID PRN 08/31/17 11/22/18 [Astelin] Verapamil ER (24 HR) [Calan SR] 180 mg PO BID 08/31/17 11/22/18 Lisinopril [Zestril] 10 mg PO QAM 09/19/18 11/22/18 Previous Rx's Medication Instructions Recorded Propafenone [Rhythmol] 150 mg PO Q8HR #90 tablet 09/21/18 Allergies Allergy/AdvReac Type Severity Reaction Status Date / Time No Known Allergies Allergy Verified 08/31/17 07:48 All systems ED: reviewed and negative except as stated. Review of Systems: As Per HPI Constitutional: Reports: fever (by EMS, not measured at home). Denies: chills ENT ED: Denies: congestion Cardiovascular: Denies: chest pain, palpitations, dyspnea on exertion, edema, syncope, paroxysmal nocturnal dyspnea Respiratory: Denies: cough, dyspnea, wheezes, sputum production Gastrointestinal: Denies: abdominal pain, nausea, vomiting, diarrhea Genitourinary: Denies: urgency, dysuria, frequency, hematuria Musculoskeletal: Denies: back pain, neck pain Integumentary: Denies: rash Neurological: Reports: confusion. Denies: weakness, numbness, paresthesias Past Medical History - Past Medical History Attestation: Yes The following information was validated with the patient. Medical history: Reports: atrial fibrillation, hyperlipidemia, other Psychiatric history: Reports: no psych history - Social History Smoking Status: Never smoker Smokeless Tobacco Status: No Alcohol use: Reports: none Drug use: Reports: none Physical Exam - General Limitations: no limitations General appearance: alert, in no apparent distress - Head Head exam: atraumatic, normocephalic, normal inspection - Eye Eye exam: Present: normal appearance, PERRL, EOMI - ENT ENT exam: normal exam, normal oropharynx, mucous membranes dry - Neck Neck exam: Present: normal inspection, full ROM, trachea midline - Chest Chest inspection: Present: normal inspection, symmetric chest wall rise - Respiratory Respiratory exam: Present: normal lung sounds bilaterally. Absent: respiratory distress, wheezes - Cardiovascular Cardiovascular exam: Present: tachycardia, irregular rhythm, +S1, +S2 - Abdominal Exam Abdominal exam: Present: soft, Non-Tender. Absent: tenderness, distention, guarding, rebound, rigidity - Extremities Exam Extremities exam: Present: normal inspection, full ROM, normal capillary refill, calf tenderness (mildly on right; patient states chronic. ). Absent: tenderness, pedal edema - Back Exam Back exam: Present: normal inspection, full ROM. Absent: tenderness, CVA tenderness (R), CVA tenderness (L) - Neurological Exam Neurological exam: Present: alert, oriented X3, CN II-XII intact. Absent: motor sensory deficit - Expanded Neurological Exam Patient oriented to: Present: person, place, time Speech: Present: fluid speech Cranial nerves: EOM function (II, III, IV, ): Normal, facial sensation (V): Normal, facial palsy (VII): Normal, gag reflex (IX): Normal, spinal accessory function (XI): Normal, tongue deviation (XII): Normal Cerebellar function: finger to nose: Normal, heel to dennison: Normal Motor strength - LUE: 5/5 Motor strength - RUE: 5/5 Motor strength - LLE: 5/5 Motor strength - RLE: 5/5 Sensory exam upper extremity: light touch: Normal Sensory exam lower extremity: light touch: Normal Coma Scale Eye Opening: Spontaneous Coma Scale Motor Response: Obeys Commands Coma Scale Verbal Response: Oriented Coma Scale Total: 15 - Psychiatric Psychiatric exam: Present: normal affect, normal mood - Skin Skin exam: Present: warm, dry, intact, normal color Course Course Narrative: Patient undergo evaluation for his fall as well as for his altered mental status with a sepsis workup given his tachycardia and fever. Suspected source at this time is urine. However, we will evaluate with a chest x-ray and send off blood cultures as well he also undergo a cardiac workup given his tachycardia as well as a head CT to evaluate for any intracranial bleed given that he is on blood thinners. - Reevaluation(s) Reevaluation #1: Review the patient's medical records does appear that he has chronic kidney disease with the stage unspecified. His lab work was remarkable for urinary tract infection. His chronic was also elevated. He had no leukocytosis his heart rate improved with fluids and his fever was better controlled with Tylenol. He started on Rocephin antibiotics for urinary tract infection. He will be admitted to the hospital for further treatment and evaluation. He also had a head CT as well as a CT of the cervical spine due to concern for fall in which those were unremarkable. Discussed the patient's case with Dr. Otoole he agreed to accept the patient. Time: 01:01 Vital Signs Temperature 100.7 F H 11/22/18 22:37 Pulse Rate 105 11/22/18 22:37 Respiratory Rate 20 11/22/18 22:37 Blood Pressure 148/82 11/22/18 22:37 O2 Sat by Pulse Oximetry 95 11/22/18 22:37 Temperature 100.7 F H 11/22/18 22:37 Pulse Rate 80 11/23/18 00:45 Respiratory Rate 15 11/23/18 00:45 Blood Pressure 121/64 11/23/18 00:45 O2 Sat by Pulse Oximetry 91 11/23/18 00:45 Oxygen Delivery Oxygen Delivery Room Air Medical Decision Making - Medical Records Medical records reviewed: Yes I reviewed the patient's medical records. - Lab Data Lab results reviewed: Yes I reviewed the patient's lab results. Result diagrams: 11/22/18 23:24 11/22/18 23:24 Lab Results 11/22/18 11/22/18 11/22/18 Range/Units 23:10 23:24 23:24 WBC 6.3 (4.3-11.1) K/mcL RBC 4.79 (4.19-5.50) M/mcL Hgb 14.0 (12.9-16.9) g/dL Hct 42.4 (37.5-50.1) % MCV 88.5 (83.0-100.0) fL MCH 29.2 (28.0-33.3) pg MCHC 33.0 (31.6-35.5) g/dL RDW 13.5 (11.5-14.5) % Plt Count 190 (140-400) K/mcL MPV 9.5 (9.4-12.4) fL Immature Gran % 0.6 (0-4) % Seg Neutrophils % 68.7 % Lymphocytes % 12.8 % Monocytes % 17.7 % Eosinophils % 0.0 % Basophils % 0.2 % Neutrophils # 4.4 (1.6-8.9) K/mcL Lymphocytes # 0.8 (0.6-4.6) K/mcL Monocytes # 1.1 (0.0-1.3) K/mcL Eosinophils # 0.0 (0.0-0.6) K/mcL Basophils # 0.0 (0.0-0.2) K/mcL PT 18.2 H (9.4-12.1) Seconds INR 1.6 APTT 34.1 (26.0-36.0) Seconds Sodium (136-145) mEq/L Potassium (3.5-5.1) mEq/L Chloride (98-107) mEq/L Carbon Dioxide (23-29) mEq/L BUN (8-23) mg/dL Creatinine (0.70-1.30) mg/dL Est GFR ( Amer) (> 60) Est GFR (Non-Af Amer) (> 60) BUN/Creatinine Ratio (6-26) Glucose (70-105) mg/dL Calculated Osmolality (280-300) Lactic Acid (0.5-2.2) mmol/L Calcium (8.6-10.3) mg/dL Phosphorus (2.7-4.5) mg/dL Magnesium (1.6-2.6) mg/dL Troponin I (< 0.04) ng/mL Urine Color Yellow (Yellow) Urine Clarity Turbid A (Clear) Urine pH 6.0 (5.0-8.0) pH Units Ur Specific [place] 1.015 (1.010-1.025) Urine Protein 100 H (Neg-Trace) mg/dL Urine Glucose (UA) Normal (Normal) mg/dL Urine Ketones Negative (Negative) mg/dL Urine Blood Large H (Negative) Urine Nitrite Positive A (Negative) Urine Bilirubin Negative (Negative) Urine Urobilinogen Normal (Normal) mg/dL Ur Leukocyte Esterase Large H (Negative) Urine Microscopic RBC 30-50 H (0-3) per hpf Urine Microscopic WBC TNTC H (0-3) per hpf Ur Squamous Epith Cells Moderate H (None-Few) per lpf Urine Bacteria Many H (None-Few) per hpf Hyaline Casts None Seen (None-Few) per lpf Ur Culture Indicated? YES A (NO) 11/22/18 11/22/18 Range/Units 23:24 23:24 WBC (4.3-11.1) K/mcL RBC (4.19-5.50) M/mcL Hgb (12.9-16.9) g/dL Hct (37.5-50.1) % MCV (83.0-100.0) fL MCH (28.0-33.3) pg MCHC (31.6-35.5) g/dL RDW (11.5-14.5) % Plt Count (140-400) K/mcL MPV (9.4-12.4) fL Immature Gran % (0-4) % Seg Neutrophils % % Lymphocytes % % Monocytes % % Eosinophils % % Basophils % % Neutrophils # (1.6-8.9) K/mcL Lymphocytes # (0.6-4.6) K/mcL Monocytes # (0.0-1.3) K/mcL Eosinophils # (0.0-0.6) K/mcL Basophils # (0.0-0.2) K/mcL PT (9.4-12.1) Seconds INR APTT (26.0-36.0) Seconds Sodium 135 L (136-145) mEq/L Potassium 4.1 (3.5-5.1) mEq/L Chloride 106 (98-107) mEq/L Carbon Dioxide 19 L (23-29) mEq/L BUN 32 H (8-23) mg/dL Creatinine 1.67 H (0.70-1.30) mg/dL Est GFR ( Amer) 49 L (> 60) Est GFR (Non-Af Amer) 41 L (> 60) BUN/Creatinine Ratio 19 (6-26) Glucose 135 H (70-105) mg/dL Calculated Osmolality 289 (280-300) Lactic Acid 0.6 (0.5-2.2) mmol/L Calcium 8.8 (8.6-10.3) mg/dL Phosphorus 3.0 (2.7-4.5) mg/dL Magnesium 2.2 (1.6-2.6) mg/dL Troponin I < 0.03 (< 0.04) ng/mL Urine Color (Yellow) Urine Clarity (Clear) Urine pH (5.0-8.0) pH Units Ur Specific [place] (1.010-1.025) Urine Protein (Neg-Trace) mg/dL Urine Glucose (UA) (Normal) mg/dL Urine Ketones (Negative) mg/dL Urine Blood (Negative) Urine Nitrite (Negative) Urine Bilirubin (Negative) Urine Urobilinogen (Normal) mg/dL Ur Leukocyte Esterase (Negative) Urine Microscopic RBC (0-3) per hpf Urine Microscopic WBC (0-3) per hpf Ur Squamous Epith Cells (None-Few) per lpf Urine Bacteria (None-Few) per hpf Hyaline Casts (None-Few) per lpf Ur Culture Indicated? (NO) - Radiology Data Radiology results reviewed: Yes I reviewed the patient's radiology results. Chest X-Ray 11/22/18 22:45 IMPRESSION: No focal pneumonia or any other acute cardiopulmonary abnormality. D/ / Bandar Abdalla / Bandar Abdalla Interpreting Provider: Bandar Abdalla Cervical Spine CT 11/23/18 00:01 IMPRESSION: No acute abnormality of the cervical spine. D/ / Bandar Abdalla / Bandar Abdalla Interpreting Provider: Bandar Abdalla Head CT 11/23/18 00:01 IMPRESSION: No acute intracranial abnormality. D/ / Bandar Abdalla / Bandar Abdalla Interpreting Provider: Bandar Abdalla - EKG Data EKG #1 EKG attestation: Yes I reviewed and interpreted this EKG. EKG results narrative: EKG done at 22:37 shows sinus tachycardia at a rate of 103 bpm. Normal axis. OR interval was prolonged at 217. Other intervals within normal limits. Unchanged from prior EKG performed on 09/21/18 except for the rate which is tachycardic. Attestation Statement - Attestation Attestation: I, Dariusz Felipe, examined this patient and my medical decision-making was reviewed with the [employer] [employer]/PA/Advanced Practice Nurse/Resident Physician. I agree with the documented findings, disposition and treatment plan as described except to the extent set forth below. 73-year-old male presents emergency Department with concerns of flank pain, altered mental status, multiple falls. states that he has a history of incomplete emptying of the bladder and he self catheterizes over the past 2 years. Patient had a fever over the past 24 hours. states similar symptoms have occurred with urinary tract infections in the past. Patient denies recent trauma, changes in medications. CT of head was negative for acute fracture or intracranial hemorrhage. Urinalysis shows likely urinary tract infection. Patient has mild acute kidney injury on laboratory evaluation. He was then antibiotics in the emergency department and will be admitted to the hospitalist for further care and evaluation.
[2018-11-22 23:27] LABS: Bilirubin,Urine Negative (Negative); Blood,Urine Large (Negative); Clarity,Urine Turbid (Clear); Color,Urine Yellow (Yellow); Glucose,Urine (UA) Normal (Normal); Ketones,Urine Negative (Negative); Leukocyte Esterase,Urine Large (Negative); Nitrite,Urine Positive (Negative); Protein,Urine 100 mg/dL (Neg-Trace); Specific Gravity,Urine 1.015 (1.010-1.025); Urobilinogen,Urine Normal (Normal)
[2018-11-22 23:29] LABS: Bacteria,Urine Many per hpf (None-Few); Hyaline Casts,Urine None Seen per lpf (None-Few); RBC,Urine 30-50 per hpf (0-3); Squamous Epithelial Cell,Urine Moderate per lpf (None-Few); WBC,Urine TNTC per hpf (0-3)
[2018-11-22 23:36] LABS: Basophils % 0.2 %; Hematocrit 42.4 % (37.5-50.1); Immature Granulocytes % 0.6 % (0-4); Lymphocytes # 0.8 K/mcL (0.6-4.6); Lymphocytes % 12.8 %; Mean Corpuscular Hemoglobin 29.2 pg (28.0-33.3); Mean Corpuscular Volume 88.5 fL (83.0-100.0); Mean Platelet Volume 9.5 fL (9.4-12.4); Monocytes # 1.1 K/mcL (0.0-1.3); Monocytes % 17.7 %; Neutrophils # 4.4 K/mcL (1.6-8.9); Platelet Count 190 K/mcL (140-400); Red Blood Count 4.79 M/mcL (4.19-5.50); Red Cell Distribution Width 13.5 % (11.5-14.5); Segmented Neutrophils % 68.7 %; White Blood Count 6.3 K/mcL (4.3-11.1)
[2018-11-22 23:45] LABS: INR 1.6; Prothrombin Time 18.2 Seconds (9.4-12.1)
[2018-11-22 23:47] LABS: Activated Partial Thrombo Time 34.1 Seconds (26.0-36.0)
[2018-11-22] MEDS ORDERED: cefTRIAXone 1,000 MG in Water for inj. (sterile) 10 ML IVP ONE (23:54)
[2018-11-22 23:58] LABS: BUN/Creatinine Ratio 19 (6-26); Blood Urea Nitrogen 32 mg/dL (8-23); Calcium 8.8 mg/dL (8.6-10.3); Carbon Dioxide 19 mEq/L (23-29); Chloride 106 mEq/L (98-107); Glucose 135 mg/dL (70-105); Magnesium 2.2 mg/dL (1.6-2.6); Osmolality,Calculated 289 (280-300); Potassium 4.1 mEq/L (3.5-5.1); Sodium 135 mEq/L (136-145); Troponin I < 0.03 ng/mL (< 0.04); eGFR For African Americans 49 (> 60); eGFR For Non-African Americans 41 (> 60)
[2018-11-23] MEDS ORDERED: Naloxone 0.4 MG/ML INJ IVP PRN (05:51)
[2018-11-23] MEDS ORDERED: Acetaminophen 325 MG TABLET PO PRN (05:51)
[2018-11-23] MEDS ORDERED: Azelastine 0.1% Nasal Spray 30 ML BOTTLE NS PRN (05:55)
--- NOTE | 2018-11-23 06:02 | Internal Med History&Physical ---
Date of Encounter: 11/23/18 Time of Encounter: 05:25 Internal Medicine - H&P: HPI Chief complaint: fever; confusion; urinary retention Admitted From: Emergency Dept Plans for Post Hospital Care: Home History of present illness: Mr. Eastman is a 73 year old male who presents to the ER tonight after a one to two-day history of confusion, low-grade subjective fevers, and difficulty urinating and self catheterizing his bladder. He was brought to ER by his family and was found to have evidence of UTI, dehydration, and acute kidney injury. He was therefore admitted to hospitalist service. Upon my assessment of the patient, his is present at bedside. She confirms all the above history. He appears to be alert and oriented 3 now. However, he and, especially she, admit that he has been confused the last 2 days. He has a history of urinary retention and has to self catheterize his bladder on average about twice per day. He still urinates voluntarily, but he has significant bladder retention, necessitating self intermittent catheterization. He has had rare UTIs in the past. His last UTI was over a year ago. He used to follow with an urologist, but his urologist left the area. He has been trying to establish with a urologist in [place], but he is on a waiting list. He would like to see an urologist here at [place] if possible. He has had prior bladder surgery and prostate surgery. He denies any current prostate issues. Past Med Surg Social Fam HX - Past Medical History Attestation: Yes The following information was validated with the patient. Source: patient, old records reviewed, obtained from family Medical history: atrial fibrillation, hypertension Additional medical history: BPH Psychiatric history: no psych history - Past Surgical History Additional surgical history: ULCER SURGERY, BLADDER SURGERY - Social History Smoking Status: Never smoker Smokeless Tobacco Status: No Alcohol use: none Drug use: none Current living situation: Home, With Family Activity Level: Independent ambulation Recent Out of Country Travel Within the Last 8 Weeks: No - Family History Mother Living Status: Hx Family Cardiac Disorders: Yes Father Living Status: Hx Family Cardiac Disorders: No Internal Medicine - H&P: Meds Lisinopril [Zestril] 20 mg PO QPM 04/13/17 [History] Montelukast [Singulair] 10 mg PO DAILY 04/13/17 [History] Potassium Chloride [K-Tab ER] 20 meq PO HS 04/13/17 [History] Tamsulosin [Flomax] 0.4 mg PO DAILY 04/13/17 [History] Apixaban [Eliquis] 5 mg PO BID 08/31/17 [History] Azelastine 0.1% Nasal [place] [Astelin] 1 spr NS BID PRN 08/31/17 [History] Verapamil ER (24 HR) [Calan SR] 180 mg PO BID 08/31/17 [History] Lisinopril [Zestril] 10 mg PO QAM 09/19/18 [History] Propafenone [Rhythmol] 150 mg PO Q8HR #90 tablet 09/21/18 [Rx] Allergy/AdvReac Type Severity Reaction Status Date / Time No Known Allergies Allergy Verified 08/31/17 07:48 - Constitutional Constitutional: fever(s), no chills, no night sweats - EENT Eyes: no blurry vision, no change in vision Ears: no ear pain, no tinnitus Nose, mouth and throat: no nasal congestion, no sore throat - Cardiovascular Cardiovascular ROS IM: no chest pain, no dyspnea, no edema - Respiratory Respiratory: no cough, no chest congestion - Gastrointestinal Gastrointestinal: nausea, no abdominal pain, no diarrhea, no hematemesis, no hematochezia, no melena, no vomiting - Genitourinary Genitourinary ROS male: difficulty urinating, dysuria, no flank pain, no hematuria - Musculoskeletal Musculoskeletal ROS IM: no arthralgias, no back pain - Integumentary Integumentary IM: no rash, no jaundice - Neurological Neurological ROS: confusion, no convulsions, no dizziness, no focal weakness, no frequent falls, no headache(s) - Psychiatric Psychiatric: no anxiety, no depression - Endocrine Endocrine IM: no cold intolerance, no heat intolerance, no polydipsia, no polyphagia, no polyuria - Allergic/Immunologic Allergic/Immunologic: no GI upset with certain foods - Constitutional Vitals: Temp Pulse Resp BP Pulse Ox 97.9 F 69 15 114/70 95 11/23/18 03:17 11/23/18 03:17 11/23/18 03:17 11/23/18 03:17 11/23/18 03:17 General appearance: Present: cooperative, A&O X 3, pleasant, no acute distress, answers questions appropriately Exam: looks dry; A&O x 3 now - Head Head exam: Present: atraumatic, normal inspection - Eye Eye exam: Present: EOMI, PERRL. Absent: scleral icterus Pupils: Present: normal accommodation - ENT ENT exam: Present: mucous membranes dry, normal exam, normal oropharynx - Neck Neck exam general surgery: Present: full ROM, supple, trachea midline. Absent: lymphadenopathy, tenderness, nuchal rigidity, thyromegaly - Respiratory Respiratory exam: Present: CTAB. Absent: rales, respiratory distress, rhonchi, wheezes - Cardiovascular Cardiovascular exam: Present: distant heart sounds, +S1, +S2. Absent: diastolic murmur, JVD, systolic murmur - GI/Abdominal GI/Abdominal exam: Present: normal bowel sounds, soft. Absent: guarding, splen omegaly, tenderness - Extremities Exam Extremities exam: Present: full ROM, normal capillary refill, warm. Absent: calf tenderness, joint swelling, pedal edema, tenderness - Back Exam Back exam: Present: normal inspection. Absent: CVA tenderness (L), CVA tenderness (R) - Neurological Exam Neurological exam: Present: alert, CN II-XII intact, oriented X3, no focal deficits - Psychiatric Psychiatric exam: Present: normal affect, normal mood - Skin Skin exam: Present: dry, intact, warm Internal Med - H&P Results - Labs CBC & Chem 7: 11/22/18 23:24 11/22/18 23:24 Labs: Short CBC 11/22/18 Range/Units 23:24 WBC 6.3 (4.3-11.1) K/mcL Hgb 14.0 (12.9-16.9) g/dL Hct 42.4 (37.5-50.1) % Plt Count 190 (140-400) K/mcL Neutrophils # 4.4 (1.6-8.9) K/mcL BMP 11/22/18 23:24 Sodium 135 L Potassium 4.1 Chloride 106 Carbon Dioxide 19 L BUN 32 H Creatinine 1.67 H Glucose 135 H Calcium 8.8 Cardiac Enzymes 11/22/18 Range/Units 23:24 Troponin I < 0.03 (< 0.04) ng/mL Urine 11/22/18 Range/Units 23:10 Urine Color Yellow (Yellow) Urine Clarity Turbid A (Clear) Urine pH 6.0 (5.0-8.0) pH Units Ur Specific [place] 1.015 (1.010-1.025) Urine Protein 100 H (Neg-Trace) mg/dL Urine Glucose (UA) Normal (Normal) mg/dL - Impressions ITS Impressions Chest X-Ray 11/22/18 22:45 IMPRESSION: No focal pneumonia or any other acute cardiopulmonary abnormality. D/ / Bandar Abdalla / Bandar Abdalla Interpreting Provider: Bandar Abdalla Cervical Spine CT 11/23/18 00:01 IMPRESSION: No acute abnormality of the cervical spine. D/ / Bandar Abdalla / Bandar Abdalla Interpreting Provider: Bandar Abdalla Head CT 11/23/18 00:01 IMPRESSION: No acute intracranial abnormality. D/ / Bandar Abdalla / Bandar Abdalla Interpreting Provider: Bandar Abdalla - Diagnostic Studies Chest x-ray Status: image reviewed by me (negative) - Assessment and Plan (1) UTI (urinary tract infection) Current Visit: Yes Status: Acute Assessment and plan: 1. Blood and urine cultures obtained in ER. 2. Continue Rocephin and IVF. 3. Follow culture results and adjust antibiotics according to culture results. Qualifiers: Urinary tract infection type: acute cystitis Hematuria presence: with hematuria Qualified Code(s): N30.01 - Acute cystitis with hematuria (2) Acute encephalopathy Current Visit: Yes Status: Acute Assessment and plan: 1. Likely due to UTI. 2. CT head in ER was negative. 3. and patient deny and history of falling or head injury. 4. Monitor clinically. (3) KELLEY (acute kidney injury) Current Visit: Yes Status: Acute Assessment and plan: 1. IVF hydration. 2. Hold MONTSE. 3. Renal ultrasound ordered. 4. Urology consult to assess for obstructive uropathy and per patient request. 5. Monitor renal function and consult nephrology if function does not improve. (4) Atrial fibrillation Current Visit: Yes Status: Chronic Assessment and plan: 1. Monitor on telemetry. 2. Continue home meds as appropriate. Qualifiers: Atrial fibrillation type: paroxysmal Qualified Code(s): I48.0 - Paroxysmal atrial fibrillation (5) Hypertension Current Visit: Yes Status: Chronic Assessment and plan: 1. Hold MONTSE for now due to KELLEY. 2. Monitor BP and treat PRN with likely Hydralzaszine Qualifiers: Hypertension type: essential hypertension Qualified Code(s): I10 - Essential (primary) hypertension
[2018-11-23] MEDS: 0.9 % Sodium Chloride 1,000 ML IVC SCH ×2 (06:57→21:25)
--- NOTE | 2018-11-23 09:19 | Urology - Consult Note ---
<Lindy Melissa N - Last Filed: 11/23/18 09:17> Date of Encounter: 11/23/18 Time of Encounter: 08:35 - Assessment and Plan (1) Urinary retention due to benign prostatic hyperplasia Current Visit: Yes Status: Acute Assessment and plan: Patient is 73-year-old male who presents with urinary retention with incomplete bladder emptying secondary to BPH. Patient is currently performing SIC twice daily. I explained to the patient and his that we would like to see how much urine patient is voiding with each catheterization. I explained to the patient and his that he may require an indwelling Kelley catheter to maximize drainage if infection and renal function fail to improve. I will also place an order to continue finasteride daily. Dr. Smith will be in to reevaluate patient this afternoon. (2) KELLEY (acute kidney injury) Current Visit: Yes Status: Acute Assessment and plan: Patient is a 73-year-old male who presents with acute kidney injury. Serum creatinine is elevated to 1.67. Renal and bladder ultrasound is pending. We anticipate recovery of renal function with IV fluids and antibiotics. (3) UTI (urinary tract infection) Current Visit: Yes Status: Acute Assessment and plan: Patient is a 73-year-old male who presents with a urinary tract infection. Vital signs are currently stable and afebrile. Patient sustained a maximum temperature to 100.7F on admission. Blood and urine cultures are pending. Patient is receiving IV Rocephin. I explained to patient and his that he is likely colonized from self intermittent catheterization, but his urinary tract infection should be treated if he is experiencing symptoms and fever. Qualifiers: Urinary tract infection type: acute cystitis Hematuria presence: with hematuria Qualified Code(s): N30.01 - Acute cystitis with hematuria Urology CN:[facility] Consult date: 11/23/18 Reason for consult Urology: Other (Urinary retention, urinary tract infection, KELLEY) Requesting physician: Wilbert Castillo History of present illness: Patient is a 73-year-old male who presents with a history of urinary retention requiring self intermittent catheterization, urinary tract infection and acute kidney injury. Patient presented the emergency department accompanied with his with a 2 day history of fever, altered mental status, urinary urgency and f requency. Patient has a long-standing history of urinary retention with incomplete bladder emptying, and he has been self catheterizing twice daily for the past 2 years. Patient was previously established with Dr. Suresh at [place], but he has not been seen in almost 1 year. Patient states he has undergone a TURP procedure several years ago, and he is currently taking Flomax and finasteride daily. Patient states some days he is able to void on his own throughout the day, and other times he relies only on the SIC twice daily for complete emptying. Patient reports his last known urinary tract infection was approximately 1 year ago, and he was treated with outpatient oral antibiotics with resolution of infection. Patient is unsure of his last PSA. Patient denies any known family history of prostate cancer or other malignancy. Patient reports his brother and father were both treated for BPH. Currently, patient is sitting upright in bed with his at bedside, and he is in no apparent distress. Patient denies any fever, chills, flank pain, gross hematuria, incontinence or dysuria. Patient states urinary urgency is improving, and patient's reports his mental status is improved. Past Med Surg Social Fam HX - Past Medical History Medical history: atrial fibrillation, hypertension Additional medical history: BPH Psychiatric history: no psych history - Past Surgical History Additional surgical history: ULCER SURGERY, BLADDER SURGERY - Social History Smoking Status: Never smoker Smokeless Tobacco Status: No Alcohol use: none Drug use: none - Family History Mother Living Status: Hx Family Cardiac Disorders: Yes Father Living Status: Hx Family Cardiac Disorders: No Medications and Allergies Lisinopril [Zestril] 20 mg PO QPM 04/13/17 [History] Montelukast [Singulair] 10 mg PO DAILY 04/13/17 [History] Potassium Chloride [K-Tab ER] 20 meq PO HS 04/13/17 [History] Tamsulosin [Flomax] 0.4 mg PO DAILY 04/13/17 [History] Apixaban [Eliquis] 5 mg PO BID 08/31/17 [History] Azelastine 0.1% Nasal [place] [Astelin] 1 spr NS BID PRN 08/31/17 [History] Verapamil ER (24 HR) [Calan SR] 180 mg PO BID 08/31/17 [History] Lisinopril [Zestril] 10 mg PO QAM 09/19/18 [History] Propafenone [Rhythmol] 150 mg PO Q8HR #90 tablet 09/21/18 [Rx] Allergy/AdvReac Type Severity Reaction Status Date / Time No Known Allergies Allergy Verified 08/31/17 07:48 Review of Systems - Constitutional chills, fatigue, fever(s) - EENT Nose, mouth and throat: no dizziness, no headache(s) - Cardiovascular no chest pain, no diaphoresis, no dyspnea - Respiratory no cough, no dyspnea - Gastrointestinal abdominal pain, nausea, no vomiting - Genitourinary change in urinary stream, difficulty urinating, urinary frequency, urinary hesitancy, urinary urgency, no dysuria, no flank pain, no hematuria, no urinary incontinence - Musculoskeletal no back pain, no muscle weakness - Integumentary no erythema, no rash - Neurological as per HPI, confusion, weakness, no syncope - Psychiatric no anxiety, no depression - Hematologic/Lymphatic no easy bleeding, no easy bruising - Allergic/Immunologic no throat swelling, no wheezing Exam Initial Vital Signs Temp Pulse Resp BP Pulse Ox 100.7 F H 105 20 148/82 95 11/22/18 22:37 11/22/18 22:37 11/22/18 22:37 11/22/18 22:37 11/22/18 22:37 - General physical appearance Present: well developed, no distress, no pain - Eyes Present: PERRL, normal ocular movement - ENT Present: normal nares, no hearing loss, no congestion - Neck Present: no masses, trachea midline, no lymphadenopathy - Respiratory Present: normal respiratory effort - Cardiovascular Cardiovascular exam IM: RRR - Abdomen Abdomen: Present: soft, non tender. Absent: distended - Genitourinary other (No CVAT) - Integumentary Present: no rash, no abnormal pigmentation - Neurologic Present: normal coordination - Musculoskeletal Present: other (normal posture ) Urology Results - Labs 11/22/18 23:24 11/22/18 23:24 Abnormal lab results PT 18.2 Seconds (9.4-12.1) H 11/22/18 23:24 Sodium 135 mEq/L (136-145) L 11/22/18 23:24 Carbon Dioxide 19 mEq/L (23-29) L 11/22/18 23:24 BUN 32 mg/dL (8-23) H 11/22/18 23:24 1.67 mg/dL (0.70-1.30) H 11/22/18 23:24 Est GFR ( Amer) 49 (> 60) L 11/22/18 23:24 Est GFR (Non-Af Amer) 41 (> 60) L 11/22/18 23:24 Glucose 135 mg/dL (70-105) H 11/22/18 23:24 Turbid (Clear) A 11/22/18 23:10 100 mg/dL (Neg-Trace) H 11/22/18 23:10 Large (Negative) H 11/22/18 23:10 Positive (Negative) A 11/22/18 23:10 Ur Leukocyte Esterase Large (Negative) H 11/22/18 23:10 30-50 per hpf (0-3) H 11/22/18 23:10 TNTC per hpf (0-3) H 11/22/18 23:10 Ur Squamous Epith Cells Moderate per lpf (None-Few) H 11/22/18 23:10 Many per hpf (None-Few) H 11/22/18 23:10 Ur Culture Indicated? YES (NO) A 11/22/18 23:10 Diabetes panel 11/22/18 Range/Units 23:24 Sodium 135 L (136-145) mEq/L Potassium 4.1 (3.5-5.1) mEq/L Chloride 106 (98-107) mEq/L Carbon Dioxide 19 L (23-29) mEq/L BUN 32 H (8-23) mg/dL Creatinine 1.67 H (0.70-1.30) mg/dL Glucose 135 H (70-105) mg/dL Calcium 8.8 (8.6-10.3) mg/dL Calcium panel 11/22/18 Range/Units 23:24 Calcium 8.8 (8.6-10.3) mg/dL Phosphorus 3.0 (2.7-4.5) mg/dL Pituitary panel 11/22/18 Range/Units 23:24 Sodium 135 L (136-145) mEq/L Potassium 4.1 (3.5-5.1) mEq/L Chloride 106 (98-107) mEq/L Carbon Dioxide 19 L (23-29) mEq/L BUN 32 H (8-23) mg/dL Creatinine 1.67 H (0.70-1.30) mg/dL Glucose 135 H (70-105) mg/dL Calcium 8.8 (8.6-10.3) mg/dL Adrenal panel 11/22/18 Range/Units 23:24 Sodium 135 L (136-145) mEq/L Potassium 4.1 (3.5-5.1) mEq/L Chloride 106 (98-107) mEq/L Carbon Dioxide 19 L (23-29) mEq/L BUN 32 H (8-23) mg/dL Creatinine 1.67 H (0.70-1.30) mg/dL Glucose 135 H (70-105) mg/dL Calcium 8.8 (8.6-10.3) mg/dL All other labs normal. Consult Discharge Plan - Plan Referrals: Nick Patel DO [Primary Care Provider] - <Aguila Smith - Last Filed: 11/23/18 13:16> Date of Encounter: 11/23/18 - Assessment and Plan (1) Hydronephrosis Current Visit: Yes Status: Acute Assessment and plan: patient seen and examined. Agree with physician administrative assistant data entry assessment and plan. The patient currently performs intermittent catheterization twice per day. We discussed that this could be due to outlet obstruction versus neurogenic bladde r. If he wishes for a more definitive option we can consider an outpatient workup and hopefully resolve this issue. At the time of my evaluation the ultrasound demonstrates right-sided hydronephrosis. Unknown etiology at this time but an obstructing ureteral calculi needs to be considered. We will proceed with CT stone protocol. If a ureteral calculi is present he will require a stone extraction. Urology will continue to follow the patient Qualifiers: Hydronephrosis type: unspecified Qualified Code(s): N13.30 - Unspecified hydronephrosis Exam Initial Vital Signs Temp Pulse Resp BP Pulse Ox 100.7 F H 105 20 148/82 95 11/22/18 22:37 11/22/18 22:37 11/22/18 22:37 11/22/18 22:37 11/22/18 22:37 Urology Results - Labs 11/22/18 23:24 11/22/18 23:24 Abnormal lab results PT 18.2 Seconds (9.4-12.1) H 11/22/18 23:24 Sodium 135 mEq/L (136-145) L 11/22/18 23:24 Carbon Dioxide 19 mEq/L (23-29) L 11/22/18 23:24 BUN 32 mg/dL (8-23) H 11/22/18 23:24 1.67 mg/dL (0.70-1.30) H 11/22/18 23:24 Est GFR ( Amer) 49 (> 60) L 11/22/18 23:24 Est GFR (Non-Af Amer) 41 (> 60) L 11/22/18 23:24 Glucose 135 mg/dL (70-105) H 11/22/18 23:24 Turbid (Clear) A 11/22/18 23:10 100 mg/dL (Neg-Trace) H 11/22/18 23:10 Large (Negative) H 11/22/18 23:10 Positive (Negative) A 11/22/18 23:10 Ur Leukocyte Esterase Large (Negative) H 11/22/18 23:10 30-50 per hpf (0-3) H 11/22/18 23:10 TNTC per hpf (0-3) H 11/22/18 23:10 Ur Squamous Epith Cells Moderate per lpf (None-Few) H 11/22/18 23:10 Many per hpf (None-Few) H 11/22/18 23:10 Ur Culture Indicated? YES (NO) A 11/22/18 23:10 Diabetes panel 11/22/18 Range/Units 23:24 Sodium 135 L (136-145) mEq/L Potassium 4.1 (3.5-5.1) mEq/L Chloride 106 (98-107) mEq/L Carbon Dioxide 19 L (23-29) mEq/L BUN 32 H (8-23) mg/dL Creatinine 1.67 H (0.70-1.30) mg/dL Glucose 135 H (70-105) mg/dL Calcium 8.8 (8.6-10.3) mg/dL Calcium panel 11/22/18 Range/Units 23:24 Calcium 8.8 (8.6-10.3) mg/dL Phosphorus 3.0 (2.7-4.5) mg/dL Pituitary panel 11/22/18 Range/Units 23:24 Sodium 135 L (136-145) mEq/L Potassium 4.1 (3.5-5.1) mEq/L Chloride 106 (98-107) mEq/L Carbon Dioxide 19 L (23-29) mEq/L BUN 32 H (8-23) mg/dL Creatinine 1.67 H (0.70-1.30) mg/dL Glucose 135 H (70-105) mg/dL Calcium 8.8 (8.6-10.3) mg/dL Adrenal panel 11/22/18 Range/Units 23:24 Sodium 135 L (136-145) mEq/L Potassium 4.1 (3.5-5.1) mEq/L Chloride 106 (98-107) mEq/L Carbon Dioxide 19 L (23-29) mEq/L BUN 32 H (8-23) mg/dL Creatinine 1.67 H (0.70-1.30) mg/dL Glucose 135 H (70-105) mg/dL Calcium 8.8 (8.6-10.3) mg/dL All other labs normal.
[2018-11-23] MEDS: Apixaban 5 MG TABLET PO SCH ×2 (10:33→21:25)
[2018-11-23] MEDS: cefTRIAXone 1,000 MG in Water for inj. (sterile) 10 ML IVP SCH (10:33)
[2018-11-23] MEDS: Finasteride 5 MG TABLET PO SCH (10:33)
[2018-11-23] MEDS: Verapamil ER (24 HR) 180 MG TABLET.ER PO SCH ×2 (12:42→21:25)
--- NOTE | 2018-11-23 12:44 | Electrocardiograph Report ---
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
[2018-11-24 05:49] LABS: Basophils % 0.5 %; Eosinophils # 0.1 K/mcL (0.0-0.6); Hematocrit 40.3 % (37.5-50.1); Immature Granulocytes % 0.7 % (0-4); Mean Corpuscular HGB Conc 32.3 g/dL (31.6-35.5); Mean Corpuscular Hemoglobin 28.8 pg (28.0-33.3); Mean Corpuscular Volume 89.2 fL (83.0-100.0); Mean Platelet Volume 9.6 fL (9.4-12.4); Monocytes # 1.1 K/mcL (0.0-1.3); Monocytes % 17.8 %; Neutrophils # 3.9 K/mcL (1.6-8.9); Platelet Count 184 K/mcL (140-400); Red Blood Count 4.52 M/mcL (4.19-5.50); Red Cell Distribution Width 13.4 % (11.5-14.5); White Blood Count 6.1 K/mcL (4.3-11.1)
[2018-11-24 06:09] LABS: Alanine Aminotransferase 10 Units/L (7-52); Albumin 3.2 g/dL (3.5-5.7); Albumin/Globulin Ratio 1.1 (1.1-2.2); Alkaline Phosphatase 43 Units/L (34-104); Aspartate Amino Transferase 10 Units/L (13-39); BUN/Creatinine Ratio 17 (6-26); Bilirubin,Total 0.4 mg/dL (0.3-1.0); Blood Urea Nitrogen 21 mg/dL (8-23); Calcium 8.3 mg/dL (8.6-10.3); Carbon Dioxide 20 mEq/L (23-29); Chloride 106 mEq/L (98-107); Glucose 104 mg/dL (70-105); Magnesium 2.2 mg/dL (1.6-2.6); Osmolality,Calculated 283 (280-300); Sodium 135 mEq/L (136-145); Total Protein 6.2 g/dL (6.4-8.9); eGFR For African Americans > 60 (> 60); eGFR For Non-African Americans 58 (> 60)
--- NOTE | 2018-11-24 06:59 | Event Note ---
Date of Encounter: 11/24/18 Time of Encounter: 06:[address] scan images. Bilateral hydronephrosis and hydroureter noted. He does have some bladder distention. No ureteral calculi visualized. The patient's renal function has normalized today. I strongly suspect that this is a chronic process based on my conversation with the patient and his yesterday. I do not feel it requires acute surgical intervention during this hospital stay but will require further evaluation as an outpatient. This is either due to vesicoureteral reflux due to his neurogenic bladder and incomplete emptying or obstruction at the ureterovesical junction from his neurogenic bladder. We will consider a MAG3 renal scan and/or cystoscopy with retrograde pyelograms as an outpatient. Will discuss these findings with the patient and his later today. In the meantime, I recommend continuing culture specific antibiotics for 10-14 days. Patient should increase intermittent catheterization to a minimum of 3 times per day but preferably 4. I suspect that even when he voids he is not completely emptying his bladder which is likely contributing to the hydronephrosis.
--- NOTE | 2018-11-24 08:30 | Urology Progress Note ---
<Lindy Melissa N - Last Filed: 11/24/18 08:28> Date of Encounter: 11/24/18 Time of Encounter: 08:10 - Assessment and Plan (1) Urinary retention due to benign prostatic hyperplasia Current Visit: Yes Status: Acute Assessment and plan: Patient is a 73-year-old male who presents with chronic urinary retention, acute renal insufficiency, urinary tract infection and bilateral hydronephrosis. Vital signs are stable and afebrile. Renal function is much improved and has returned to baseline. Patient underwent a renal ultrasound revealing bilateral hydronephrosis, severe on the right and mild to moderate on the left. Patient then underwent a CT of the abdomen and pelvis redemonstrating hydronephrosis, but this was performed without contrast secondary to patient's renal insufficiency. There was no renal or ureteral calculi identified. Patient's bladder appeared markedly distended, almost to the level of the umbilicus. We suspect hydronephrosis is chronic and secondary to either vesicoureteral reflux or UVJ obstruction due to neurogenic bladder. I explained to patient that he needs to self catheterize 3-4 times per day rather than 2 times per day and that he will require a follow up with Dr. Smith within 4 weeks of discharge. We will likely proceed with a MAG3 renal scan and cystoscopy as an outpatient. Patient will require an additional 10-14 days of oral culture sensitive antibiotics after discharge. (2) KELLEY (acute kidney injury) Current Visit: Yes Status: Acute (3) UTI (urinary tract infection) Current Visit: Yes Status: Acute Assessment and plan: Patient is 73-year-old male who presents with a urinary tract infection. Preliminary urine culture is positive for gram-negative rods. Patient is receiving IV Rocephin. We are awaiting final culture and sensitivity report. Patient will require an additional 10-14 days of oral culture sensitive antibiotics. Qualifiers: Urinary tract infection type: acute cystitis Hematuria presence: with hematuria Qualified Code(s): N30.01 - Acute cystitis with hematuria Progress Note Subjective: no new complaints Narrative: Patient seen and examined sitting upright in chair eating breakfast in no apparent distress. Patient reports he is feeling better, and dysuria, frequency and urgency have subsided. Patient denies any fever, chills, flank pain or gross hematuria. Objective Initial Vital Signs Temp Pulse Resp BP Pulse Ox 100.7 F H 105 20 148/82 95 11/22/18 22:37 11/22/18 22:37 11/22/18 22:37 11/22/18 22:37 11/22/18 22:37 - General physical appearance Present: no distress, no pain - Respiratory Present: normal expansion, normal respiratory effort - Abdomen Present: soft, non tender. Absent: distended - Integumentary Present: no rash, no abnormal pigmentation - Musculoskeletal Present: normal posture - Psychiatric Present: oriented to time, oriented to person, oriented to place, speech is normal, memory intact - Labs 11/24/18 05:23 11/24/18 05:23 Diabetes panel 11/24/18 Range/Units 05:23 Sodium 135 L (136-145) mEq/L Potassium 4.0 (3.5-5.1) mEq/L Chloride 106 (98-107) mEq/L Carbon Dioxide 20 L (23-29) mEq/L BUN 21 (8-23) mg/dL Creatinine 1.22 (0.70-1.30) mg/dL Glucose 104 (70-105) mg/dL Calcium 8.3 L (8.6-10.3) mg/dL AST 10 L (13-39) Units/L ALT 10 (7-52) Units/L Alkaline Phosphatase 43 (34-104) Units/L Albumin 3.2 L (3.5-5.7) g/dL Calcium panel 11/24/18 Range/Units 05:23 Calcium 8.3 L (8.6-10.3) mg/dL Albumin 3.2 L (3.5-5.7) g/dL Pituitary panel 11/24/18 Range/Units 05:23 Sodium 135 L (136-145) mEq/L Potassium 4.0 (3.5-5.1) mEq/L Chloride 106 (98-107) mEq/L Carbon Dioxide 20 L (23-29) mEq/L BUN 21 (8-23) mg/dL Creatinine 1.22 (0.70-1.30) mg/dL Glucose 104 (70-105) mg/dL Calcium 8.3 L (8.6-10.3) mg/dL Adrenal panel 11/24/18 Range/Units 05:23 Sodium 135 L (136-145) mEq/L Potassium 4.0 (3.5-5.1) mEq/L Chloride 106 (98-107) mEq/L Carbon Dioxide 20 L (23-29) mEq/L BUN 21 (8-23) mg/dL Creatinine 1.22 (0.70-1.30) mg/dL Glucose 104 (70-105) mg/dL Calcium 8.3 L (8.6-10.3) mg/dL Total Bilirubin 0.4 (0.3-1.0) mg/dL AST 10 L (13-39) Units/L ALT 10 (7-52) Units/L Alkaline Phosphatase 43 (34-104) Units/L Albumin 3.2 L (3.5-5.7) g/dL Consult Discharge Plan - Plan Referrals: [facility] [Other] - 12/12/18 8:00 am (Please arrive at 7:45 for paperwork. Thank you) Nick Patel DO [Primary Care Provider] - <Aguila Smith - Last Filed: 11/25/18 06:32> Date of Encounter: 11/25/18 - Assessment and Plan (1) Hydronephrosis Current Visit: Yes Status: Acute Assessment and plan: Patient seen and examined in conjunction with physician billing assistant. Agree with her assessment and plan. No surgical intervention required in the hospital as the patient appears to be improving. Increase intermittent catheterization 3-4 times a day with follow-up in the urology office. Continue antibiotics total minimum of 10 days Qualifiers: Hydronephrosis type: unspecified Qualified Code(s): N13.30 - Unspecified hydronephrosis Objective Initial Vital Signs Temp Pulse Resp BP Pulse Ox 100.7 F H 105 20 148/82 95 11/22/18 22:37 11/22/18 22:37 11/22/18 22:37 11/22/18 22:37 11/22/18 22:37 - Labs 11/24/18 05:23 11/24/18 05:23
[2018-11-24] MEDS: Apixaban 5 MG TABLET PO SCH ×2 (09:54→20:58)
[2018-11-24] MEDS: Finasteride 5 MG TABLET PO SCH (09:54)
[2018-11-24] MEDS: Verapamil ER (24 HR) 180 MG TABLET.ER PO SCH ×2 (09:55→20:58)
[2018-11-24] MEDS: cefTRIAXone 1,000 MG in Water for inj. (sterile) 10 ML IVP SCH (09:55)
--- NOTE | 2018-11-24 18:11 | Internal Med Progress Note ---
Hospitalist Progress Note - Encounter Date of Encounter: 11/24/18 Time of Encounter: 18:06 - Subjective Interval History: Pt up in his chair. at bedside. He states he is feeling much better. He denies fever, chills, N/V or diarrhea. Denies chest pain or SOB. Pt denies dysuria - Exam Vitals: Temp Pulse Resp BP Pulse Ox 97.6 F 56 16 109/67 96 11/24/18 15:19 11/24/18 15:19 11/24/18 15:19 11/24/18 15:19 11/24/18 15:19 Exam: General appearance: Present: cooperative, A&O X 3, pleasant, no acute distress, answers questions appropriately Exam: Head exam: Present: atraumatic, normal inspection Eye exam: Present: EOMI, PERRL. Absent: scleral icterus Pupils: Present: normal accommodation ENT exam: Present: mucous membranes dry, normal exam, normal oropharynx Neck exam general surgery: Present: full ROM, supple, trachea midline. Absent: lymphadenopathy, tenderness, nuchal rigidity, thyromegaly Respiratory exam: Present: CTAB. Absent: rales, respiratory distress, rhonchi, wheezes Cardiovascular exam: Present: distant heart sounds, +S1, +S2. Absent: diastolic murmur, JVD, systolic murmur GI/Abdominal exam: Present: normal bowel sounds, soft. Absent: guarding, splenomegaly, tenderness Extremities exam: Present: full ROM, normal capillary refill, warm. Absent: calf tenderness, joint swelling, pedal edema, tenderness Back exam: Present: normal inspection. Absent: CVA tenderness (L), CVA tenderness (R) Neurological exam: Present: alert, CN II-XII intact, oriented X3, no focal deficits Psychiatric exam: Present: normal affect, normal mood Skin exam: Present: dry, intact, warm - Assessment and Plan (1) Acute encephalopathy Current Visit: Yes Status: Acute Assessment and Plan: 1. Likely due to UTI. 2. CT head in ER was negative. 3. and patient deny and history of falling or head injury. 4. Pt and admits he is back to his baseline. (2) Hypertension Current Visit: Yes Status: Chronic Assessment and Plan: Hold MONTSE for now due to KELLEY. Verapamil ER 180 mg PO BID. BP stable and treat PRN with likely Hydralazine (3) Atrial fibrillation Current Visit: Yes Status: Chronic Assessment and Plan: 1. Monitor on telemetry. 2. Continue home meds as appropriate. (4) UTI (urinary tract infection) Current Visit: Yes Status: Acute Assessment and Plan: 1. Blood and urine cultures obtained in ER. 2. Continue Rocephin and IVF. 3. Culture results are pending. Will adjust antibiotics according to culture results. (5) KELLEY (acute kidney injury) Current Visit: Yes Status: Acute Assessment and Plan: IVF hydration. Hold MONTSE. Renal ultrasound reviewed. Urology consulted to assess for obstructive uropathy and per patient request. Urology recommending follow up out pt in 3-4 weeks and decrease how often he self catherizes. Renal function back to baseline. Renal ultrasound US/US retroperitoneal comp IMPRESSION: 1. Mild right hydronephrosis of uncertain etiology. 2. Low level echoes within the urinary bladder which is of uncertain significance however correlation with urinalysis is recommended as an infectious cystitis could have this appearance. DVT Prophylaxis: Eliquis - Summary of Assessment and Plan Summary of Assessment and Plan: History of present illness: Dr. Castillo Mr. Eastman is a 73 year old male who presents to the ER tonight after a one to two-day history of confusion, low-grade subjective fevers, and difficulty urinating and self catheterizing his bladder. He was brought to ER by his family and was found to have evidence of UTI, dehydration, and acute kidney injury. He was therefore admitted to hospitalist service. Upon my assessment of the patient, his is present at bedside. She confirms all the above history. He appears to be alert and oriented 3 now. However, he and, especially she, admit that he has been confused the last 2 days. He has a history of urinary retention and has to self catheterize his bladder on average about twice per day. He still urinates voluntarily, but he has significant bladder retention, necessitating self intermittent catheterization. He has had rare UTIs in the past. His last UTI was over a year ago. He used to follow with an urologist, but his urologist left the area. He has been trying to establish with a urologist in [place], but he is on a waiting list. He would like to see an urologist here at [place] if possible. He has had prior bladder surgery and prostate surgery. He denies any current prostate issues. - Time Spent with Patient Total time spent is greater than 50% in coordination of care (as documented) at patient's floor/unit and/or counseling patient: less than 15 minutes Plan of Care Discussed with: patient Internal Medicine: Result - Labs CBC & Chem 7: 11/24/18 05:23 11/24/18 05:23 Labs: Short CBC 11/24/18 Range/Units 05:23 WBC 6.1 (4.3-11.1) K/mcL Hgb 13.0 (12.9-16.9) g/dL Hct 40.3 (37.5-50.1) % Plt Count 184 (140-400) K/mcL Neutrophils # 3.9 (1.6-8.9) K/mcL BMP 11/24/18 05:23 Sodium 135 L Potassium 4.0 Chloride 106 Carbon Dioxide 20 L BUN 21 Creatinine 1.22 Glucose 104 Calcium 8.3 L Liver Function 11/24/18 Range/Units 05:23 Total Bilirubin 0.4 (0.3-1.0) mg/dL AST 10 L (13-39) Units/L ALT 10 (7-52) Units/L Alkaline Phosphatase 43 (34-104) Units/L Albumin 3.2 L (3.5-5.7) g/dL - ABG Interpretation ABG results: PT/INR, D-dimer PT 18.2 Seconds (9.4-12.1) H 11/22/18 23:24 Consult Discharge Plan - Plan Referrals: [facility] [Other] - 12/12/18 8:00 am (Please arrive at 7:45 for paperwork. Thank you) Nick Patel DO [Primary Care Provider] - (2) Hypertension Qualifiers: Hypertension type: essential hypertension Qualified Code(s): I10 - Essential (primary) hypertension (3) Atrial fibrillation Qualifiers: Atrial fibrillation type: paroxysmal Qualified Code(s): I48.0 - Paroxysmal atrial fibrillation (4) UTI (urinary tract infection) Qualifiers: Urinary tract infection type: acute cystitis Hematuria presence: with hematuria Qualified Code(s): N30.01 - Acute cystitis with hematuria
[2018-11-25 06:50] LABS: Albumin 3.2 g/dL (3.5-5.7); BUN/Creatinine Ratio 19 (6-26); Blood Urea Nitrogen 24 mg/dL (8-23); Calcium 8.4 mg/dL (8.6-10.3); Carbon Dioxide 22 mEq/L (23-29); Chloride 104 mEq/L (98-107); Glucose 93 mg/dL (70-105); Osmolality,Calculated 286 (280-300); Phosphorous 3.4 mg/dL (2.7-4.5); Sodium 136 mEq/L (136-145); eGFR For African Americans > 60 (> 60); eGFR For Non-African Americans 57 (> 60)
[2018-11-25] MEDS: Finasteride 5 MG TABLET PO SCH (07:49)
[2018-11-25] MEDS: Verapamil ER (24 HR) 180 MG TABLET.ER PO SCH (07:50)
[2018-11-25] MEDS: cefTRIAXone 1,000 MG in Water for inj. (sterile) 10 ML IVP SCH (07:50)
[2018-11-25] MEDS: Apixaban 5 MG TABLET PO SCH (07:51)
[2018-11-25 09:48] VITALS: BP 157/86
--- NOTE | 2018-11-25 10:49 | Discharge Summary ---
- NOTES TO OUTPATIENT PROVIDER Notes to Outpatient Provider: PCP in 5 to 7 days Orders not resulted at time of discharge: Pending orders 11/22/18 23:20 Culture,Blood [BC] Stat 11/23/18 06:00 ECG 12 lead ECG [ECG] AM 0600 Date of Encounter: 11/25/18 Time of Encounter: 10:47 - Discharge Diagnosis (1) Acute cystitis with hematuria Priority: Primary Status: Acute Assessment and Plan: Present on admission Blood NGTD Urine cultures showed Enterobacter aerogenes. Pt was on Rocephin and will discharge Omnicef to complete 10 more days of antibiotic . (2) Acute encephalopathy Priority: Primary Status: Resolved Assessment and Plan: Resolved Likely due to UTI. CT head in ER was negative. and patient deny and history of falling or head injury. Pt and admits he is back to his baseline. (3) Hypertension Priority: Secondary Status: Chronic Assessment and Plan: Hold MONTSE for now due to KLELEY. Renal funciton improved so can resume Lisinopril at discharge. Verapamil ER 180 mg PO BID. Qualifiers: Hypertension type: essential hypertension Qualified Code(s): I10 - Essential (primary) hypertension (4) Atrial fibrillation Priority: Secondary Status: Chronic Assessment and Plan: 1. Monitor on telemetry. 2. Continue home meds, Eliquis and Verapamil ER. Qualifiers: Atrial fibrillation type: paroxysmal Qualified Code(s): I48.0 - Paroxysmal atrial fibrillation (5) KELLEY (acute kidney injury) Priority: Primary Status: Acute Assessment and Plan: IVF hydration. Hold MONTSE. Renal ultrasound reviewed. Urology consulted to assess for obstructive uropathy and per patient request. Urology recommending follow up out pt in 3-4 weeks and increase how often he self catherizes from 2 times a day to 3-4 times a day. Renal function back to baseline. Renal ultrasound US/US retroperitoneal comp IMPRESSION: 1. Mild right hydronephrosis of uncertain etiology. 2. Low level echoes within the urinary bladder which is of uncertain significance however correlation with urinalysis is recommended as an infectious cystitis could have this appearance. (6) Urinary retention due to benign prostatic hyperplasia Priority: Secondary Status: Chronic Assessment and Plan: Pt seen by urologist and recommending increase and not decrease frequency of starlight caths. Urology went over instructions with pt. Pt is to follow up with Dr. Smith in 4 weeks out pt for further management. Continue on Flomax and Proscar (7) BPH (benign prostatic hyperplasia) Priority: Secondary Status: Chronic Assessment and Plan: On Flomax and proscar Qualifiers: Lower urinary tract symptom presence: symptoms absent Qualified Code(s): N40.0 - Benign prostatic hyperplasia without lower urinary tract symptoms Hospital course: History of present illness: Dr. Castillo Mr. Eastman is a 73 year old male who presents to the ER tonight after a one to two-day history of confusion, low-grade subjective fevers, and difficulty uri nating and self catheterizing his bladder. He was brought to ER by his family and was found to have evidence of UTI, dehydration, and acute kidney injury. He was therefore admitted to hospitalist service. Upon my assessment of the patient, his is present at bedside. She confirms all the above history. He appears to be alert and oriented 3 now. However, he and, especially she, admit that he has been confused the last 2 days. He has a history of urinary retention and has to self catheterize his bladder on average about twice per day. He still urinates voluntarily, but he has signif icant bladder retention, necessitating self intermittent catheterization. He has had rare UTIs in the past. His last UTI was over a year ago. He used to follow with an urologist, but his urologist left the area. He has been trying to establish with a urologist in [place], but he is on a waiting list. He would like to see an urologist here at [facility] if possible. He has had prior bladder surgery and prostate surgery. He denies any current prostate issues. Discharge discussed with: patient - Time Spent with Patient Total time spent providing and/or coordinating discharge services: Time spent: Greater than 30 minutes - Discharge Medications Prescriptions: No Action Tamsulosin [Flomax] 0.4 mg PO QAM Montelukast [Singulair] 10 mg PO QPM Potassium Chloride [K-Tab ER] 20 meq PO HS Azelastine 0.1% Nasal Browder [Astelin] 2 spr NS BID PRN PRN Reason: Congestion Verapamil ER (24 HR) [Calan SR] 180 mg PO BID Apixaban [Eliquis] 5 mg PO BID Lisinopril [Zestril] 10 mg PO QAM Propafenone [Rhythmol] 150 mg PO Q8HR #90 tablet Finasteride [Proscar] 5 mg PO QAM Lisinopril [Zestril] 20 mg PO QPM Home Medications: Montelukast [Singulair] 10 mg PO QPM 04/13/17 [History] Potassium Chloride [K-Tab ER] 20 meq PO HS 04/13/17 [History] Tamsulosin [Flomax] 0.4 mg PO QAM 04/13/17 [History] Apixaban [Eliquis] 5 mg PO BID 08/31/17 [History] Azelastine 0.1% Nasal Browder [Astelin] 2 spr NS BID PRN 08/31/17 [History] Verapamil ER (24 HR) [Calan SR] 180 mg PO BID 08/31/17 [History] Lisinopril [Zestril] 10 mg PO QAM 09/19/18 [History] Propafenone [Rhythmol] 150 mg PO Q8HR #90 tablet 09/21/18 [Rx] Finasteride [Proscar] 5 mg PO QAM 11/23/18 [History] Lisinopril [Zestril] 20 mg PO QPM 11/23/18 [History] Cefdinir [Omnicef] 300 mg PO BID 10 Days #20 capsule 11/25/18 [Rx] Allergies/Adverse Reactions: Allergy/AdvReac Type Severity Reaction Status Date / Time No Known Allergies Allergy Verified 11/23/18 20:37 Date of admission: 11/23/18 01:26 Primary care physician: Nick Patel DO Consults: 11/23/18 05:54 Consult to Physician [CONS] Routine Consulting Provider: Aguila Smith Reason for Consult: urinary retention; KELLEY Call Completed: No 11/23/18 12:27 Consult to Physical Therapy [CONS] Routine Comment: Evaluate, develop and implement POC Reason for Consult: Increased weakness, patient dragging left foot when ambulating per and has had recent falls Does patient have active BEDREST order?: No Is patient medically & hemodynamically stable?: Yes Patient assessed for mobility or mobilized this visit?: No Discharging clinician: Paula Ruiz Anticipated date of discharge: 11/25/18 - Constitutional Vitals: Temp Pulse Resp BP Pulse Ox 98.0 F 85 16 157/86 94 11/25/18 07:30 11/25/18 07:30 11/25/18 07:30 11/25/18 07:30 11/25/18 07:30 General appearance: Present: cooperative, A&O X 3, pleasant, no acute distress, answers questions appropriately Exam: . - Head Head exam: Present: atraumatic, normocephalic - Eye Eye exam: Present: PERRL, conjuntiva pink, sclera anicteric Pupils: Present: PERRL - Neck Neck exam general surgery: Present: supple, trachea midline. Absent: lymphadenopathy - Respiratory Respiratory exam: Present: CTAB. Absent: accessory muscle use, rales, rhonchi, wheezes - Cardiovascular Cardiovascular exam: Present: RRR, +S1, +S2. Absent: diastolic murmur, gallop, rubs, systolic murmur - GI/Abdominal GI/Abdominal exam: Present: normal bowel sounds, soft, no peritoneal signs. Absent: distended, tenderness - Extremities Exam Extremities exam: Present: warm, radial pulses palpable and symmetrical. Absent: calf tenderness, cyanotic, pedal edema - Neurological Exam Neurological exam: Present: CN II-XII intact, oriented X3, no focal deficits. Absent: pronater drift, facial droop, speech deficit - Skin Skin exam: Present: dry, intact - Patient Status Disposition: Home, Self-Care Condition: Good Overall status at discharge: patient is progressing back to baseline - Discharge Instructions Follow Up With: [facility] [Other] - 12/12/18 8:00 am (Please arrive at 7:45 for paperwork. Thank you) Nick Patel DO [Primary Care Provider] - - Diet and Activity Activity: increase activity as tolerated Diet: low fat, low cholesterol, low salt diet
--- NOTE | 2018-11-25 11:19 | Urology Progress Note ---
<Lindy Melissa N - Last Filed: 11/25/18 11:20> Date of Encounter: 11/25/18 Time of Encounter: 11:00 - Assessment and Plan (1) Urinary retention due to benign prostatic hyperplasia Status: Chronic Assessment and plan: Patient is a 73-year-old male who presents with urinary retention with incomplete bladder emptying secondary to BPH and possibly a neurogenic bladder. Patient has been instructed to increase self intermittent catheterization to 4 times daily[address] I reviewed [address] findings with patient's , and she is aware patient will require an outpatient follow-up within 2-4 weeks after discharge. Patient wishes to be established with Dr. Smith will further discuss a MAG3 renal scan and cystoscopy at outpatient follow-up. (2) KELLEY (acute kidney injury) Status: Acute (3) UTI (urinary tract infection) Status: Acute Assessment and plan: Patient is a 73-year-old male who presents with Enterobacter urinary tract infection. Vital signs are currently stable and afebrile. White blood cell count and renal function are reassuring. Patient has been receiving IV Rocephin. The primary team to arrange outpatient culture sensitive antibiotics for an additional 10-14 days. Qualifiers: Urinary tract infection type: site unspecified Hematuria presence: with hematuria Qualified Code(s): N39.0 - Urinary tract infection, site not specified; R31.9 - Hematuria, unspecified Progress Note Subjective: no new complaints, feels better Narrative: Patient seen and examined sitting upright in chair in no apparent distress. Patient's is at bedside. Patient denies any fever, chills, dysuria, gross hematuria or flank pain. Patient anticipating discharge later today. Objective Initial Vital Signs Temp Pulse Resp BP Pulse Ox 100.7 F H 105 20 148/82 95 11/22/18 22:37 11/22/18 22:37 11/22/18 22:37 11/22/18 22:37 11/22/18 22:37 - General physical appearance Present: well developed, no distress, no pain - Respiratory Present: normal expansion, normal respiratory effort - Abdomen Present: soft, non tender. Absent: distended - Integumentary Present: no rash, no abnormal pigmentation - Musculoskeletal Present: normal posture - Psychiatric Present: oriented to time, oriented to person, oriented to place, speech is normal. Absent: memory intact - Labs 11/24/18 05:23 11/25/18 05:15 Diabetes panel 11/25/18 Range/Units 05:15 Sodium 136 (136-145) mEq/L Potassium 4.0 (3.5-5.1) mEq/L Chloride 104 (98-107) mEq/L Carbon Dioxide 22 L (23-29) mEq/L BUN 24 H (8-23) mg/dL Creatinine 1.24 (0.70-1.30) mg/dL Glucose 93 (70-105) mg/dL Calcium 8.4 L (8.6-10.3) mg/dL Albumin 3.2 L (3.5-5.7) g/dL Calcium panel 11/25/18 Range/Units 05:15 Calcium 8.4 L (8.6-10.3) mg/dL Phosphorus 3.4 (2.7-4.5) mg/dL Albumin 3.2 L (3.5-5.7) g/dL Pituitary panel 11/25/18 Range/Units 05:15 Sodium 136 (136-145) mEq/L Potassium 4.0 (3.5-5.1) mEq/L Chloride 104 (98-107) mEq/L Carbon Dioxide 22 L (23-29) mEq/L BUN 24 H (8-23) mg/dL Creatinine 1.24 (0.70-1.30) mg/dL Glucose 93 (70-105) mg/dL Calcium 8.4 L (8.6-10.3) mg/dL Adrenal panel 11/25/18 Range/Units 05:15 Sodium 136 (136-145) mEq/L Potassium 4.0 (3.5-5.1) mEq/L Chloride 104 (98-107) mEq/L Carbon Dioxide 22 L (23-29) mEq/L BUN 24 H (8-23) mg/dL Creatinine 1.24 (0.70-1.30) mg/dL Glucose 93 (70-105) mg/dL Calcium 8.4 L (8.6-10.3) mg/dL Albumin 3.2 L (3.5-5.7) g/dL Consult Discharge Plan - Plan Referrals: [facility] [Other] - 12/12/18 8:00 am (Please arrive at 7:45 for paperwork. Thank you) Amanda,Nick D, DO [Primary Care Provider] - (Web request. Office will call patient with date and time of appointment. Thank you) Aguila Smith MD [Partnered Physician] - 12/12/18 11:00 am Prescriptions: Cefdinir [Omnicef] 300 mg PO BID 10 Days #20 capsule <Aguila Smith - Last Filed: 11/25/18 17:08> Date of Encounter: 11/25/18 - Assessment and Plan (1) Hydronephrosis Status: Acute Assessment and plan: pt seen and examined in conjunction with PA. Tobin with discharge per urology standpoint. Plan to follow-up as outpatient to manage hydronephrosis and incomplete emptying. Qualifiers: Hydronephrosis type: unspecified Qualified Code(s): N13.30 - Unspecified hydronephrosis Objective Initial Vital Signs Temp Pulse Resp BP Pulse Ox 100.7 F H 105 20 148/82 95 11/22/18 22:37 11/22/18 22:37 11/22/18 22:37 11/22/18 22:37 11/22/18 22:37 - Labs 11/24/18 05:23 11/25/18 05:15 Diabetes panel 11/25/18 Range/Units 05:15 Sodium 136 (136-145) mEq/L Potassium 4.0 (3.5-5.1) mEq/L Chloride 104 (98-107) mEq/L Carbon Dioxide 22 L (23-29) mEq/L BUN 24 H (8-23) mg/dL Creatinine 1.24 (0.70-1.30) mg/dL Glucose 93 (70-105) mg/dL Calcium 8.4 L (8.6-10.3) mg/dL Albumin 3.2 L (3.5-5.7) g/dL Calcium panel 11/25/18 Range/Units 05:15 Calcium 8.4 L (8.6-10.3) mg/dL Phosphorus 3.4 (2.7-4.5) mg/dL Albumin 3.2 L (3.5-5.7) g/dL Pituitary panel 11/25/18 Range/Units 05:15 Sodium 136 (136-145) mEq/L Potassium 4.0 (3.5-5.1) mEq/L Chloride 104 (98-107) mEq/L Carbon Dioxide 22 L (23-29) mEq/L BUN 24 H (8-23) mg/dL Creatinine 1.24 (0.70-1.30) mg/dL Glucose 93 (70-105) mg/dL Calcium 8.4 L (8.6-10.3) mg/dL Adrenal panel 11/25/18 Range/Units 05:15 Sodium 136 (136-145) mEq/L Potassium 4.0 (3.5-5.1) mEq/L Chloride 104 (98-107) mEq/L Carbon Dioxide 22 L (23-29) mEq/L BUN 24 H (8-23) mg/dL Creatinine 1.24 (0.70-1.30) mg/dL Glucose 93 (70-105) mg/dL Calcium 8.4 L (8.6-10.3) mg/dL Albumin 3.2 L (3.5-5.7) g/dL
== END 2018-11-25 11:35 | disposition home or self-care (01) ==
LOC: 3ANU 22:25 → EMEROOARM 22:25 → 3ANU 11-23 02:41
PROVIDERS: ADMIT Family Medicine; ATTEND Family Medicine

== ENCOUNTER 2019-08-03 15:16 | Inpatient (IN) ==
[2019-08-03 16:06] LABS: INR 1.3; Prothrombin Time 14.2 Seconds (9.4-12.1)
[2019-08-03 16:07] LABS: Basophils % 0.7 %; Eosinophils # 0.1 K/mcL (0.0-0.6); Eosinophils % 2.5 %; Hematocrit 46.3 % (37.5-50.1); Immature Granulocytes % 0.4 % (0-4); Lymphocytes # 1.9 K/mcL (0.6-4.6); Lymphocytes % 33.5 %; Mean Corpuscular HGB Conc 32.4 g/dL (31.6-35.5); Mean Corpuscular Hemoglobin 28.6 pg (28.0-33.3); Mean Corpuscular Volume 88.4 fL (83.0-100.0); Mean Platelet Volume 9.9 fL (9.4-12.4); Monocytes # 0.7 K/mcL (0.0-1.3); Monocytes % 12.8 %; Neutrophils # 2.8 K/mcL (1.6-8.9); Platelet Count 169 K/mcL (140-400); Red Blood Count 5.24 M/mcL (4.19-5.50); Red Cell Distribution Width 13.4 % (11.5-14.5); Segmented Neutrophils % 50.1 %; White Blood Count 5.6 K/mcL (4.3-11.1)
[2019-08-03 16:08] LABS: Activated Partial Thrombo Time 38.5 Seconds (26.0-36.0)
[2019-08-03 16:21] LABS: BUN/Creatinine Ratio 15 (6-26); Blood Urea Nitrogen 19 mg/dL (8-23); Carbon Dioxide 20 mEq/L (23-29); Chloride 107 mEq/L (98-107); Glucose 109 mg/dL (70-105); Osmolality,Calculated 281 (280-300); Potassium 3.9 mEq/L (3.5-5.1); Sodium 134 mEq/L (136-145); eGFR For African Americans > 60 (> 60); eGFR For Non-African Americans 58 (> 60)
[2019-08-03 16:28] LABS: Troponin I 4.11 ng/mL (< 0.04)
[2019-08-03] MEDS ORDERED: *HR* Heparin 5,000 UNIT/ML VIAL IVP PRN ×2 (16:28)
[2019-08-03] MEDS ORDERED: *HR* Heparin 5,000 UNIT/ML VIAL IVP ONE (16:28)
[2019-08-03] MEDS ORDERED: Heparin 25,000 UNIT/250 ML D5W 25,000 UNIT/250 ML IV.SOLN IVC SCH ×2 (16:30→22:45)
[2019-08-03 16:38] LABS: Heparin anti-factor XA UFH 0.52 IU/mL (0.30-0.70)
[2019-08-03] MEDS ORDERED: 0.9 % Sodium Chloride 500 ML IVC SCH (17:30)
[2019-08-03] MEDS ORDERED: Perflutren Lipid Microsphere 1.3 ML in 0.9 % Sodium Chloride 8.7 ML IVP ONE (19:14)
[2019-08-03] MEDS: Verapamil ER (24 HR) 180 MG TABLET.ER PO SCH (21:42)
[2019-08-04 01:58] LABS: BUN/Creatinine Ratio 16 (6-26); Blood Urea Nitrogen 21 mg/dL (8-23); Calcium 8.6 mg/dL (8.6-10.3); Carbon Dioxide 20 mEq/L (23-29); Chloride 107 mEq/L (98-107); Chol/HDL Ratio 3.1 (0-4.9); Cholesterol 137 mg/dL (< 200); Glucose 97 mg/dL (70-105); HDL Cholesterol 44 mg/dL (40-59); LDL Cholesterol,Calculated 82 mg/dL (0-99); Osmolality,Calculated 283 (280-300); Sodium 135 mEq/L (136-145); Triglycerides 53 mg/dL (< 150); eGFR For African Americans > 60 (> 60); eGFR For Non-African Americans 55 (> 60)
[2019-08-04] MEDS: Verapamil ER (24 HR) 180 MG TABLET.ER PO SCH ×2 (08:40→21:09)
[2019-08-04] MEDS: Finasteride 5 MG TABLET PO SCH (08:40)
[2019-08-04 10:27] LABS: Estimated Average Glucose 123 mg/dl
[2019-08-04] MEDS ORDERED: Heparin 1,000 UNITS/500 mL 500 ML ONE (11:13)
[2019-08-04] MEDS ORDERED: ISOVUE-370 200 ML INFUS..BTL ONE ×2 (11:13→12:09)
[2019-08-04] MEDS ORDERED: Nitroglycerin 1,000 MCG/10 ML VIAL IV ONE (11:13)
[2019-08-04] MEDS ORDERED: *HR* Heparin 10,000 UNIT/10 ML VIAL ONE (11:13)
[2019-08-04] MEDS ORDERED: 0.9 % Sodium Chloride 2,000 ML ONE (11:13)
[2019-08-04] MEDS ORDERED: *HR* FentaNYL (PF) 100 MCG/2 ML VIAL ONE (11:37)
[2019-08-04] MEDS ORDERED: *HR* Midazolam HCl 2 MG/2 ML VIAL ONE (11:37)
[2019-08-04] MEDS ORDERED: *HR* Ticagrelor 90 MG TABLET ONE (12:22)
[2019-08-04] MEDS: Aspirin 81 MG TAB.CHEW PO SCH (14:16)
[2019-08-04] MEDS: Carbidopa/Levodopa 25/100 TABLET PO SCH ×3 (14:16→21:09)
[2019-08-04] MEDS: Metoprolol XL (24 HR) Succ 25 MG TAB.ER.24H PO SCH (18:50)
[2019-08-04] MEDS: *HR* Ticagrelor 90 MG TABLET PO SCH (21:09)
[2019-08-04] MEDS: Apixaban 5 MG TABLET PO SCH (21:09)
[2019-08-05 02:11] LABS: BUN/Creatinine Ratio 15 (6-26); Blood Urea Nitrogen 19 mg/dL (8-23); Troponin I 3.11 ng/mL (< 0.04); eGFR For African Americans > 60 (> 60); eGFR For Non-African Americans 56 (> 60)
[2019-08-05] MEDS: Metoprolol XL (24 HR) Succ 25 MG TAB.ER.24H PO SCH (08:30)
[2019-08-05] MEDS: *HR* Ticagrelor 90 MG TABLET PO SCH ×2 (08:30→20:48)
[2019-08-05] MEDS: Apixaban 5 MG TABLET PO SCH ×2 (08:30→20:48)
[2019-08-05] MEDS: Carbidopa/Levodopa 25/100 TABLET PO SCH ×3 (08:30→20:48)
[2019-08-05] MEDS: Verapamil ER (24 HR) 180 MG TABLET.ER PO SCH ×2 (08:30→20:48)
[2019-08-05] MEDS: Aspirin 81 MG TAB.CHEW PO SCH (08:30)
[2019-08-05] MEDS: Finasteride 5 MG TABLET PO SCH (08:30)
[2019-08-05 08:44] LABS: Hematocrit 46.9 % (37.5-50.1); Hemoglobin 15.6 g/dL (12.9-16.9); Mean Corpuscular HGB Conc 33.3 g/dL (31.6-35.5); Mean Corpuscular Hemoglobin 29.2 pg (28.0-33.3); Mean Corpuscular Volume 87.8 fL (83.0-100.0); Mean Platelet Volume 9.8 fL (9.4-12.4); Platelet Count 162 K/mcL (140-400); Red Blood Count 5.34 M/mcL (4.19-5.50); Red Cell Distribution Width 13.8 % (11.5-14.5); White Blood Count 6.2 K/mcL (4.3-11.1)
[2019-08-05 09:00] LABS: BUN/Creatinine Ratio 14 (6-26); Blood Urea Nitrogen 16 mg/dL (8-23); Calcium 9.1 mg/dL (8.6-10.3); Carbon Dioxide 22 mEq/L (23-29); Chloride 105 mEq/L (98-107); Glucose 104 mg/dL (70-105); Osmolality,Calculated 279 (280-300); Potassium 4.2 mEq/L (3.5-5.1); Sodium 134 mEq/L (136-145); eGFR For African Americans > 60 (> 60); eGFR For Non-African Americans > 60 (> 60)
[2019-08-06 05:32] LABS: Hematocrit 47.4 % (37.5-50.1); Hemoglobin 15.8 g/dL (12.9-16.9); Mean Corpuscular HGB Conc 33.3 g/dL (31.6-35.5); Mean Corpuscular Hemoglobin 28.9 pg (28.0-33.3); Mean Corpuscular Volume 86.7 fL (83.0-100.0); Mean Platelet Volume 9.9 fL (9.4-12.4); Platelet Count 182 K/mcL (140-400); Red Blood Count 5.47 M/mcL (4.19-5.50); Red Cell Distribution Width 13.5 % (11.5-14.5); White Blood Count 8.6 K/mcL (4.3-11.1)
[2019-08-06 05:47] LABS: Bilirubin,Urine Negative (Negative); Blood,Urine Small (Negative); Clarity,Urine Clear (Clear); Color,Urine Yellow (Yellow); Glucose,Urine (UA) Normal (Normal); Ketones,Urine Negative (Negative); Leukocyte Esterase,Urine Small (Negative); Nitrite,Urine Negative (Negative); PH,Urine 6.5 pH Units (5.0-8.0); Protein,Urine 30 mg/dL (Neg-Trace); Specific Gravity,Urine 1.019 (1.010-1.025); Urobilinogen,Urine Normal (Normal)
[2019-08-06 05:49] LABS: Bacteria,Urine Few per hpf (None-Few); Hyaline Casts,Urine None Seen per lpf (None-Few); RBC,Urine 15-30 per hpf (0-3); Squamous Epithelial Cell,Urine Moderate per lpf (None-Few)
[2019-08-06 05:52] LABS: BUN/Creatinine Ratio 19 (6-26); Blood Urea Nitrogen 23 mg/dL (8-23); Carbon Dioxide 20 mEq/L (23-29); Chloride 104 mEq/L (98-107); Glucose 107 mg/dL (70-105); Osmolality,Calculated 276 (280-300); Potassium 4.1 mEq/L (3.5-5.1); Sodium 131 mEq/L (136-145); eGFR For African Americans > 60 (> 60); eGFR For Non-African Americans 60 (> 60)
[2019-08-06] MEDS: Verapamil ER (24 HR) 180 MG TABLET.ER PO SCH ×2 (08:47→20:27)
[2019-08-06] MEDS: Apixaban 5 MG TABLET PO SCH ×2 (08:47→20:27)
[2019-08-06] MEDS: Aspirin 81 MG TAB.CHEW PO SCH (08:47)
[2019-08-06] MEDS: Finasteride 5 MG TABLET PO SCH (08:47)
[2019-08-06] MEDS: Carbidopa/Levodopa 25/100 TABLET PO SCH ×3 (08:48→20:27)
[2019-08-06] MEDS: Metoprolol XL (24 HR) Succ 25 MG TAB.ER.24H PO SCH (08:48)
[2019-08-06] MEDS: *HR* Ticagrelor 90 MG TABLET PO SCH ×2 (08:48→20:27)
[2019-08-06] MEDS: levoFLOXacin 500 MG TABLET PO SCH (13:41)
[2019-08-06] MEDS: lisinopriL 20 MG TABLET PO SCH (17:23)
[2019-08-07 01:50] LABS: BUN/Creatinine Ratio 33 (6-26); Blood Urea Nitrogen 36 mg/dL (8-23); Calcium 8.9 mg/dL (8.6-10.3); Carbon Dioxide 18 mEq/L (23-29); Chloride 102 mEq/L (98-107); Glucose 109 mg/dL (70-105); Osmolality,Calculated 277 (280-300); Potassium 3.8 mEq/L (3.5-5.1); Sodium 129 mEq/L (136-145); eGFR For African Americans > 60 (> 60); eGFR For Non-African Americans > 60 (> 60)
[2019-08-07] MEDS: Carbidopa/Levodopa 25/100 TABLET PO SCH ×3 (08:32→19:55)
[2019-08-07] MEDS: Apixaban 5 MG TABLET PO SCH ×2 (08:32→19:54)
[2019-08-07] MEDS: levoFLOXacin 500 MG TABLET PO SCH (08:32)
[2019-08-07] MEDS: Verapamil ER (24 HR) 180 MG TABLET.ER PO SCH ×2 (08:32→22:24)
[2019-08-07] MEDS: *HR* Ticagrelor 90 MG TABLET PO SCH ×2 (08:32→19:54)
[2019-08-07] MEDS: Finasteride 5 MG TABLET PO SCH (08:32)
[2019-08-07] MEDS: Metoprolol XL (24 HR) Succ 25 MG TAB.ER.24H PO SCH (08:32)
[2019-08-07] MEDS: Aspirin 81 MG TAB.CHEW PO SCH (08:33)
[2019-08-07] MEDS ORDERED: lisinopriL 20 MG TABLET PO SCH (09:00)
[2019-08-07] MEDS ORDERED: 0.9 % Sodium Chloride 1,000 ML IVC SCH (09:15)
[2019-08-07] MEDS ORDERED: 0.9 % Sodium Chloride 500 ML IVC SCH (11:45)
[2019-08-07] MEDS: lisinopriL 20 MG TABLET PO SCH (17:04)
[2019-08-07] MEDS ORDERED: 0.9 % Sodium Chloride 250 ML IV ONE (17:14)
[2019-08-07 18:35] LABS: Calcium 9.1 mg/dL (8.6-10.3); Potassium 4.3 mEq/L (3.5-5.1)
[2019-08-08 04:48] LABS: Calcium 8.6 mg/dL (8.6-10.3); Magnesium 2.3 mg/dL (1.6-2.6); Phosphorous 4.7 mg/dL (2.7-4.5); Potassium 3.9 mEq/L (3.5-5.1)
[2019-08-08] MEDS: *HR* Ticagrelor 90 MG TABLET PO SCH ×2 (09:47→21:06)
[2019-08-08] MEDS: Apixaban 5 MG TABLET PO SCH ×2 (09:47→21:06)
[2019-08-08] MEDS: Finasteride 5 MG TABLET PO SCH (09:47)
[2019-08-08] MEDS: Aspirin 81 MG TAB.CHEW PO SCH (09:47)
[2019-08-08] MEDS: Carbidopa/Levodopa 25/100 TABLET PO SCH ×3 (09:47→21:06)
[2019-08-08] MEDS: Metoprolol XL (24 HR) Succ 25 MG TAB.ER.24H PO SCH (09:53)
[2019-08-08] MEDS: Verapamil ER (24 HR) 180 MG TABLET.ER PO SCH ×2 (09:53→21:07)
[2019-08-08] MEDS ORDERED: 0.9 % Sodium Chloride 1,000 ML IVC SCH (10:15)
[2019-08-09 06:02] LABS: BUN/Creatinine Ratio 43 (6-26); Blood Urea Nitrogen 60 mg/dL (8-23); Calcium 8.5 mg/dL (8.6-10.3); Carbon Dioxide 21 mEq/L (23-29); Chloride 105 mEq/L (98-107); Glucose 102 mg/dL (70-105); Magnesium 2.4 mg/dL (1.6-2.6); Osmolality,Calculated 293 (280-300); Phosphorous 3.8 mg/dL (2.7-4.5); Potassium 4.2 mEq/L (3.5-5.1); Sodium 133 mEq/L (136-145); eGFR For African Americans > 60 (> 60); eGFR For Non-African Americans 50 (> 60)
[2019-08-09 07:20] VITALS: BP 103/66
[2019-08-09] MEDS: Apixaban 5 MG TABLET PO SCH (09:24)
[2019-08-09] MEDS: Metoprolol XL (24 HR) Succ 25 MG TAB.ER.24H PO SCH (09:24)
[2019-08-09] MEDS: Verapamil ER (24 HR) 180 MG TABLET.ER PO SCH (09:25)
[2019-08-09] MEDS: Carbidopa/Levodopa 25/100 TABLET PO SCH (09:26)
[2019-08-09] MEDS: Finasteride 5 MG TABLET PO SCH (09:26)
[2019-08-09] MEDS: Aspirin 81 MG TAB.CHEW PO SCH (09:26)
[2019-08-09] MEDS: *HR* Ticagrelor 90 MG TABLET PO SCH (09:26)
== END 2019-08-09 15:00 | disposition home or self-care (01) | DRG 247 ==
LOC: EMEROOARM 15:16 → 3BNU 15:16 → SUATTDRO 17:50 → 3BNU 18:30
PROVIDERS: ADMIT Internal Medicine; ATTEND Internal Medicine

== ENCOUNTER 2020-12-26 22:01 | Inpatient (IN) ==
[2020-12-26 23:14] LABS: Hemoglobin 14.8 g/dL (12.9-16.9); Red Cell Distribution Width 13.8 % (11.5-14.5)
[2020-12-26 23:16] LABS: Hematocrit 46.1 % (37.5-50.1); Immature Platelets 3.3 % (1.1-6.1); Mean Corpuscular HGB Conc 32.1 g/dL (31.6-35.5); Mean Corpuscular Volume 90.4 fL (83.0-100.0); Mean Platelet Volume 10.1 fL (9.4-12.4); Platelet Count 132 K/mcL (140-400); White Blood Count 6.1 K/mcL (4.3-11.1)
[2020-12-26 23:38] LABS: Eosinophils # 0.1 K/mcL (0.0-0.6); Lymphocytes # 0.9 K/mcL (0.6-4.6); Monocytes # 0.5 K/mcL (0.0-1.3); Neutrophils # 4.6 K/mcL (1.6-8.9); Platelet Estimate Normal (Normal)
[2020-12-27 00:03] LABS: Bacteria,Urine Moderate per hpf (None-Few); Bilirubin,Urine Negative (Negative); Blood,Urine Moderate (Negative); Clarity,Urine Turbid (Clear); Color,Urine Yellow (Yellow); Glucose,Urine (UA) Normal (Normal); Ketones,Urine Negative (Negative); Leukocyte Esterase,Urine Large (Negative); Nitrite,Urine Negative (Negative); PH,Urine 5.5 pH Units (5.0-8.0); Protein,Urine Trace mg/dL (Neg-Trace); Specific Gravity,Urine 1.017 (1.010-1.025); Squamous Epithelial Cell,Urine Few per hpf (None-Few); Urobilinogen,Urine Normal (Normal); WBC,Urine TNTC per hpf (0-3)
[2020-12-27 00:11] LABS: Alanine Aminotransferase 5 Units/L (7-52); Albumin 4.1 g/dL (3.5-5.7); Albumin/Globulin Ratio 1.3 (1.1-2.2); Alkaline Phosphatase 56 Units/L (34-104); Aspartate Amino Transferase 23 Units/L (13-39); BUN/Creatinine Ratio 22 (6-26); Bilirubin,Total 0.5 mg/dL (0.3-1.0); Blood Urea Nitrogen 29 mg/dL (8-23); Calcium 9.3 mg/dL (8.6-10.3); Carbon Dioxide 17 mEq/L (23-29); Chloride 101 mEq/L (98-107); Creatine Kinase 111 Units/L (30-223); Globulin 3.1 g/dL (2.4-3.5); Glucose 116 mg/dL (70-105); Magnesium 2.2 mg/dL (1.6-2.6); Osmolality,Calculated 281 (280-300); Phosphorous 3.6 mg/dL (2.7-4.5); Sodium 132 mEq/L (136-145); Thyroid Stimulating Hormone 2.078 mcIU/mL (0.340-5.600); Total Protein 7.2 g/dL (6.4-8.9); Troponin I < 0.03 ng/mL (< 0.04); eGFR For African Americans > 60 (> 60); eGFR For Non-African Americans 54 (> 60)
[2020-12-27] MEDS ORDERED: Dexamethasone Sodium Phos/PF 10 MG/ML VIAL IVP ONE (01:34)
[2020-12-27] MEDS ORDERED: cefTRIAXone 1,000 MG in Water for inj. (sterile) 10 ML IVP ONE (01:38)
[2020-12-27] MEDS ORDERED: Acetaminophen 325 MG TABLET PO PRN (04:43)
[2020-12-27] MEDS ORDERED: Naloxone 0.4 MG/ML INJ IVP PRN (04:43)
[2020-12-27] MEDS ORDERED: Ondansetron 4 MG/2 ML VIAL IVP PRN (04:43)
[2020-12-27] MEDS ORDERED: 0.9 % Sodium Chloride 1,000 ML IVC SCH (04:45)
[2020-12-27] MEDS: levoFLOXacin 750 MG/150 ML 750 MG/150 ML BAG IVPB SCH (07:46)
[2020-12-27] MEDS: cefTRIAXone 1,000 MG in 0.9 % Sodium Chloride Mini Bag 100 ML IVPB SCH (18:14)
[2020-12-28] MEDS: levoFLOXacin 750 MG/150 ML 750 MG/150 ML BAG IVPB SCH (07:39)
[2020-12-28] MEDS ORDERED: Azelastine 0.1% Nasal Spray 30 ML BOTTLE NS PRN (08:13)
[2020-12-28] MEDS ORDERED: Furosemide 20 MG/2 ML VIAL IVP ONE (08:15)
[2020-12-28] MEDS: Ipratropium/Albuterol Neb 3 ML IH SCH ×2 (09:24→11:19)
[2020-12-28] MEDS: Carbidopa/Levodopa 25/100 TABLET PO SCH ×3 (10:11→21:49)
[2020-12-28] MEDS: Aspirin Enteric Coated 81 MG Tablet PO SCH (10:11)
[2020-12-28] MEDS: Apixaban 5 MG TABLET PO SCH ×2 (10:12→21:48)
[2020-12-28] MEDS: Multivit/Ca/Min/Fe/FA 1 TAB TABLET PO SCH (10:12)
[2020-12-28] MEDS: Metoprolol XL (24 HR) Succ 25 MG TAB.ER.24H PO SCH (10:12)
[2020-12-28 10:56] LABS: Hematocrit 44.5 % (37.5-50.1); Hemoglobin 14.8 g/dL (12.9-16.9); Mean Corpuscular HGB Conc 33.3 g/dL (31.6-35.5); Mean Corpuscular Hemoglobin 29.5 pg (28.0-33.3); Mean Corpuscular Volume 88.8 fL (83.0-100.0); Mean Platelet Volume 10.4 fL (9.4-12.4); Platelet Count 132 K/mcL (140-400); Red Blood Count 5.01 M/mcL (4.19-5.50); Red Cell Distribution Width 13.6 % (11.5-14.5); White Blood Count 4.8 K/mcL (4.3-11.1)
[2020-12-28 11:11] LABS: BUN/Creatinine Ratio 20 (6-26); Blood Urea Nitrogen 23 mg/dL (8-23); Calcium 8.7 mg/dL (8.6-10.3); Carbon Dioxide 23 mEq/L (23-29); Chloride 101 mEq/L (98-107); Glucose 93 mg/dL (70-105); Magnesium 1.9 mg/dL (1.6-2.6); Osmolality,Calculated 281 (280-300); Phosphorous 2.6 mg/dL (2.7-4.5); Potassium 3.5 mEq/L (3.5-5.1); Sodium 134 mEq/L (136-145); eGFR For African Americans > 60 (> 60); eGFR For Non-African Americans > 60 (> 60)
[2020-12-28] MEDS: hydroCHLOROthiazide 25 MG TABLET PO SCH (11:28)
[2020-12-28] MEDS: Finasteride 5 MG TABLET PO SCH (11:28)
[2020-12-28 12:47] LABS: Lymphocytes # 0.2 K/mcL (0.6-4.6); Neutrophils # 3.7 K/mcL (1.6-8.9); Platelet Estimate Normal (Normal)
[2020-12-28] MEDS: Ipratropium 1 PUFF INHALER IH SCH ×3 (15:48→23:06)
[2020-12-28] MEDS: lisinopriL 20 MG TABLET PO SCH (17:21)
[2020-12-28] MEDS: cefTRIAXone 1,000 MG in 0.9 % Sodium Chloride Mini Bag 100 ML IVPB SCH (17:22)
[2020-12-28 18:35] LABS: Adenovirus F 40/41 PCR Not detected (Not detect); Astrovirus PCR Not detected (Not detect); C.difficile Toxin A/B Gene PCR Not detected (Not detect); Campylobacter by PCR Not detected (Not detect); Cryptosporidium by PCR Not detected (Not detect); Cyclospora cayetanensis PCR Not detected (Not detect); E. coli O157 by PCR Not detected (Not detect); Entamoeba histolytica PCR Not detected (Not detect); Enteroaggregative E.coli(EAEC) Not detected (Not detect); Enteropathogenic E.coli(EPEC) Not detected (Not detect); Enterotoxigenic E.coli (ETEC) Not detected (Not detect); Giardia lamblia PCR Not detected (Not detect); Norovirus GI/GII PCR Not detected (Not detect); Plesiomonas shigelloides PCR Not detected (Not detect); Rotavirus A PCR Not detected (Not detect); Salmonella PCR Not detected (Not detect); Sapovirus PCR Not detected (Not detect); Shig/EnteroinvasiveE coli EIEC Not detected (Not detect); Shigalike tox-prod E coli STEC Not detected (Not detect); Vibrio PCR Not detected (Not detect); Vibrio cholerae PCR Not detected (Not detect); Yersinia enterocolitica PCR Not detected (Not detect)
[2020-12-28] MEDS: GuaiFENesin/Dextromethorphan TABLET PO SCH (21:48)
[2020-12-29] MEDS: Ipratropium 1 PUFF INHALER IH SCH ×6 (04:33→23:39)
[2020-12-29 05:05] LABS: Basophils % 0.2 %; Eosinophils % 0.5 %; Hematocrit 42.6 % (37.5-50.1); Hemoglobin 14.6 g/dL (12.9-16.9); Immature Granulocytes % 0.2 % (0-4); Lymphocytes # 0.7 K/mcL (0.6-4.6); Lymphocytes % 16.3 %; Mean Corpuscular HGB Conc 34.3 g/dL (31.6-35.5); Mean Corpuscular Hemoglobin 29.6 pg (28.0-33.3); Mean Corpuscular Volume 86.4 fL (83.0-100.0); Mean Platelet Volume 10.3 fL (9.4-12.4); Monocytes % 22.9 %; Neutrophils # 2.6 K/mcL (1.6-8.9); Platelet Count 130 K/mcL (140-400); Red Blood Count 4.93 M/mcL (4.19-5.50); Red Cell Distribution Width 13.5 % (11.5-14.5); Segmented Neutrophils % 59.9 %; White Blood Count 4.4 K/mcL (4.3-11.1)
[2020-12-29 05:18] LABS: BUN/Creatinine Ratio 20 (6-26); Blood Urea Nitrogen 23 mg/dL (8-23); Calcium 8.5 mg/dL (8.6-10.3); Carbon Dioxide 24 mEq/L (23-29); Chloride 99 mEq/L (98-107); Glucose 105 mg/dL (70-105); Magnesium 1.9 mg/dL (1.6-2.6); Osmolality,Calculated 278 (280-300); Phosphorous 3.5 mg/dL (2.7-4.5); Potassium 3.1 mEq/L (3.5-5.1); Sodium 132 mEq/L (136-145); eGFR For African Americans > 60 (> 60); eGFR For Non-African Americans > 60 (> 60)
[2020-12-29] MEDS: Potassium Chloride Elixir 20 MEQ/15 ML UDC PO SCH ×2 (09:17→12:19)
[2020-12-29] MEDS: hydroCHLOROthiazide 25 MG TABLET PO SCH (09:18)
[2020-12-29] MEDS: Carbidopa/Levodopa 25/100 TABLET PO SCH ×3 (09:18→19:48)
[2020-12-29] MEDS: Apixaban 5 MG TABLET PO SCH ×2 (09:18→19:48)
[2020-12-29] MEDS: Multivit/Ca/Min/Fe/FA 1 TAB TABLET PO SCH (09:18)
[2020-12-29] MEDS: Finasteride 5 MG TABLET PO SCH (09:18)
[2020-12-29] MEDS: Metoprolol XL (24 HR) Succ 25 MG TAB.ER.24H PO SCH (09:18)
[2020-12-29] MEDS: Aspirin Enteric Coated 81 MG Tablet PO SCH (09:19)
[2020-12-29] MEDS: levoFLOXacin 750 MG/150 ML 750 MG/150 ML BAG IVPB SCH (09:19)
[2020-12-29] MEDS: cefTRIAXone 1,000 MG in 0.9 % Sodium Chloride Mini Bag 100 ML IVPB SCH (17:43)
[2020-12-29] MEDS: lisinopriL 20 MG TABLET PO SCH (17:47)
[2020-12-29] MEDS: GuaiFENesin/Dextromethorphan TABLET PO SCH (19:48)
[2020-12-30] MEDS: Ipratropium 1 PUFF INHALER IH SCH ×7 (03:46→23:40)
[2020-12-30 06:43] LABS: Basophils % 0.2 %; Eosinophils # 0.1 K/mcL (0.0-0.6); Eosinophils % 1.4 %; Hematocrit 47.8 % (37.5-50.1); Hemoglobin 15.4 g/dL (12.9-16.9); Immature Granulocytes % 0.2 % (0-4); Lymphocytes # 1.2 K/mcL (0.6-4.6); Lymphocytes % 28.1 %; Mean Corpuscular HGB Conc 32.2 g/dL (31.6-35.5); Mean Corpuscular Hemoglobin 28.7 pg (28.0-33.3); Mean Platelet Volume 10.4 fL (9.4-12.4); Monocytes % 22.4 %; Neutrophils # 2.1 K/mcL (1.6-8.9); Platelet Count 132 K/mcL (140-400); Red Blood Count 5.37 M/mcL (4.19-5.50); Red Cell Distribution Width 13.5 % (11.5-14.5); Segmented Neutrophils % 47.7 %; White Blood Count 4.4 K/mcL (4.3-11.1)
[2020-12-30 08:16] LABS: BUN/Creatinine Ratio 23 (6-26); Blood Urea Nitrogen 26 mg/dL (8-23); Calcium 8.6 mg/dL (8.6-10.3); Carbon Dioxide 22 mEq/L (23-29); Chloride 97 mEq/L (98-107); Glucose 93 mg/dL (70-105); Osmolality,Calculated 268 (280-300); Phosphorous 3.7 mg/dL (2.7-4.5); Potassium 4.2 mEq/L (3.5-5.1); Sodium 127 mEq/L (136-145); eGFR For African Americans > 60 (> 60); eGFR For Non-African Americans > 60 (> 60)
[2020-12-30] MEDS: levoFLOXacin 750 MG/150 ML 750 MG/150 ML BAG IVPB SCH (08:56)
[2020-12-30] MEDS: Aspirin Enteric Coated 81 MG Tablet PO SCH (08:57)
[2020-12-30] MEDS: Apixaban 5 MG TABLET PO SCH ×2 (08:57→21:06)
[2020-12-30] MEDS: Multivit/Ca/Min/Fe/FA 1 TAB TABLET PO SCH (08:57)
[2020-12-30] MEDS: hydroCHLOROthiazide 25 MG TABLET PO SCH (08:57)
[2020-12-30] MEDS: Finasteride 5 MG TABLET PO SCH (08:57)
[2020-12-30] MEDS: Metoprolol XL (24 HR) Succ 25 MG TAB.ER.24H PO SCH (08:57)
[2020-12-30] MEDS: Carbidopa/Levodopa 25/100 TABLET PO SCH ×3 (08:57→21:06)
[2020-12-30] MEDS: cefTRIAXone 1,000 MG in 0.9 % Sodium Chloride Mini Bag 100 ML IVPB SCH (16:12)
[2020-12-30] MEDS: lisinopriL 20 MG TABLET PO SCH (16:13)
[2020-12-30] MEDS: GuaiFENesin/Dextromethorphan TABLET PO SCH (21:06)
[2020-12-31 02:49] VITALS: PULSE 58
[2020-12-31] MEDS: Ipratropium 1 PUFF INHALER IH SCH ×3 (03:36→11:11)
[2020-12-31 07:35] VITALS: BP 124/75; TEMP 97.7; O2SAT 92
[2020-12-31 07:46] LABS: Eosinophils # 0.1 K/mcL (0.0-0.6); Hematocrit 46.7 % (37.5-50.1); Hemoglobin 15.7 g/dL (12.9-16.9); Mean Corpuscular HGB Conc 33.6 g/dL (31.6-35.5); Mean Corpuscular Hemoglobin 29.3 pg (28.0-33.3); Mean Corpuscular Volume 87.3 fL (83.0-100.0); Mean Platelet Volume 10.3 fL (9.4-12.4); Platelet Count 133 K/mcL (140-400); Red Blood Count 5.35 M/mcL (4.19-5.50); Red Cell Distribution Width 13.3 % (11.5-14.5); White Blood Count 3.6 K/mcL (4.3-11.1)
[2020-12-31 07:51] LABS: BUN/Creatinine Ratio 27 (6-26); Blood Urea Nitrogen 33 mg/dL (8-23); Calcium 8.5 mg/dL (8.6-10.3); Carbon Dioxide 23 mEq/L (23-29); Chloride 96 mEq/L (98-107); Glucose 93 mg/dL (70-105); Magnesium 2.2 mg/dL (1.6-2.6); Osmolality,Calculated 271 (280-300); Phosphorous 3.7 mg/dL (2.7-4.5); Sodium 127 mEq/L (136-145); eGFR For African Americans > 60 (> 60); eGFR For Non-African Americans 59 (> 60)
[2020-12-31 08:46] LABS: Lymphocytes # 1.2 K/mcL (0.6-4.6); Monocytes # 0.5 K/mcL (0.0-1.3); Neutrophils # 1.8 K/mcL (1.6-8.9); Reactive Lymphocytes Present (Not Present)
[2020-12-31 08:53] LABS: Platelet Estimate Slight Decrease (Normal)
[2020-12-31] MEDS: Multivit/Ca/Min/Fe/FA 1 TAB TABLET PO SCH (10:01)
[2020-12-31] MEDS: Apixaban 5 MG TABLET PO SCH (10:01)
[2020-12-31] MEDS: hydroCHLOROthiazide 25 MG TABLET PO SCH (10:01)
[2020-12-31] MEDS: Finasteride 5 MG TABLET PO SCH (10:01)
[2020-12-31] MEDS: Metoprolol XL (24 HR) Succ 25 MG TAB.ER.24H PO SCH (10:02)
[2020-12-31] MEDS: Carbidopa/Levodopa 25/100 TABLET PO SCH (10:02)
[2020-12-31] MEDS: Aspirin Enteric Coated 81 MG Tablet PO SCH (10:02)
== END 2020-12-31 16:27 | DRG 177 ==
LOC: EMEROOARM 22:01 → CDU 22:01 → 2NENU 12-28 15:02
PROVIDERS: ADMIT Student in an Organized Health Care Education/Training Program; ATTEND Student in an Organized Health Care Education/Training Program